=== PATIENT | female | born 1945 | race Caucasian/White ===

== ENCOUNTER 2020-05-08 09:59 | Outpatient (REF) | payer MEDICARE, OTHER, SELFPAY ==
[2020-05-08 13:52] LABS: MANUAL DIFF FLAG NO
[2020-05-08 13:59] LABS: Basophils Percent Auto 0.6 % (0-2); Eosinophils Absolute Auto 0.1 X10*3/uL (0.0-0.4); Eosinophils Percent Auto 1.8 % (0-4); Hematocrit 38.3 % (37-47); Hemoglobin 12.9 g/dl (12.0-16.0); Imm Gran Abs Auto 0.01 X10*3/uL (0.00-0.03); Imm Gran Pct Auto 0.2 % (0.0-0.4); Lymphocytes Absolute Auto 1.5 X10*3/uL (1.2-4.9); Lymphocytes Percent Auto 29.3 % (20-40); Mean Corpuscular HGB Conc 33.7 g/dl (31.0-35.0); Mean Corpuscular Hemoglobin 32.4 pg (27.0-33.0); Mean Corpuscular Volume 96.2 fL (80-98); Mean Platelet Volume 10.4 fL (9.4-12.3); Monocytes Absolute Auto 0.6 X10*3/uL (0.1-1.2); Monocytes Percent Auto 11.8 % (2-11); Neutrophils Absolute Auto 2.8 X10*3/uL (2.0-8.3); Neutrophils Percent Auto 56.3 % (45-73); Platelet Count 221 X10*3/uL (160-400); Red Blood Count 3.98 X10*6/uL (4.20-5.50)
[2020-05-08 14:41] LABS: Alanine Aminotransferase 15 U/L (0-31); Albumin Level 4.5 g/dL (3.5-5.0); Alkaline Phosphatase 44 U/L (39-117); Anion Gap 14 (12-20); Aspartate Amino Transferase 21 U/L (5-31); Bilirubin Total 0.7 mg/dL (0.0-1.0); Blood Urea Nitrogen 34 mg/dL (9-16); Calcium 9.2 mg/dL (8.4-10.2); Carbon Dioxide 25 mmol/L (22-29); Chloride 105 mmol/L (96-108); Cholesterol 203 mg/dL; Estimated Glomerular Filt Rate > 60; Glucose Fasting 78 mg/dL (60-99); HDL Cholesterol 78 mg/dL; LDL Cholesterol Calculated 111 mg/dl; Potassium 4.9 mmol/L (3.3-5.1); Sodium 139 mmol/L (135-145); Total Protein 6.7 g/dL (6.5-8.0); Triglycerides 71 mg/dL
[2020-05-08 14:50] LABS: Thyroid Stimulating Hormone 1.13 uIU/mL (0.32-4.0); Vitamin D 25-OH Total 38.9 ng/mL (>30)
[2020-05-08 15:20] LABS: T4 Thyroxine 3.6 ug/dL (4.5-12.0)
[2020-05-08 15:45] LABS: Folate 12.8 ng/mL (> or = 4.0); Vitamin B12 455 pg/mL (200-900)
== END 2020-05-08 10:00 | disposition home or self-care (01) ==
LOC: HO.10HDL 09:59
PROVIDERS: Visit Provider Internal Medicine
DX: Z00.00 Encounter for general adult medical examination without abnormal findings (principal); I10 Essential (primary) hypertension; M85.80 Other specified disorders of bone density and structure, unspecified site
CPT/HCPCS: 36415; 80053; 80061; 82306; 82607; 82746; 84436; 84443; 85025

== ENCOUNTER 2020-08-30 10:48 | Outpatient (REF) | payer MEDICARE, OTHER, SELFPAY ==
--- NOTE | ~2020-08-30 | MM_ITS ---
EXAMINATION: BONE DENSITOMETRY CLINICAL INDICATION: Other specified disorders of bone density and structure. COMPARISON: Previous BD dated 07/29/2017 and baseline BD dated 07/09/2013. TECHNIQUE: Using a [employer] DXA System (software version: 13.1) manufactured by [employer], dual-energy x-ray absorptiometry was performed of the lumbar spine and left hip. The images are of good technical quality. Summary results are attached. FINDINGS: AP SPINE L1-L4: Current: BMD 1.017 g/cm2, Z-score 1.0, T-score -1.4, osteopenia, 0.1% decrease from previous, 4.7% decrease from baseline (<5% change is not significant). Prior: BMD 1.018 g/cm2. Baseline: BMD 1.067 g/cm2. LEFT FEMUR, NECK: Current: BMD 0.767 g/cm2, Z-score 0.3, T-score -1.9, osteopenia. Prior: BMD 0.793 g/cm2. Baseline: BMD 0.806 g/cm2. LEFT FEMUR, TOTAL: Current: BMD 0.847 g/cm2, Z-score 0.8, T-score -1.3, osteopenia, 0.8% decrease from previous, 0.6% decrease from baseline (<5% change is not significant). Prior: BMD 0.854 g/cm2. Baseline: BMD 0.852 g/cm2. IDENTIFIED RISK FACTORS: Height loss, history of fracture (adult), menopause. HISTORY OF FRACTURE: Ribs. MEDICATIONS: Vitamin D. MM/XR DEXA axial skeleton IMPRESSION: 1. DIAGNOSIS: Osteopenia based on the lowest T-score value of -1.9 in the femoral neck applying World Health Organization criteria. 2. 10-YEAR FRACTURE RISK PREDICTION, FRAX: Major osteoporotic fracture (clinical spine, forearm, hip or shoulder) 15.6%. Hip fracture 3.6%. 3. Treatment Recommendations: NOF guidelines recommend consideration for treatment in postmenopausal women and men age 50 and older presenting with the following: -A hip or vertebral (clinical or morphometric) fracture. -T-score less than or equal to -2.5 at the femoral neck or spine after appropriate evaluation to exclude secondary causes. -Low bone mass at the hip or spine and a 10-year fracture probability by FRAX of greater than or equal to 3% for hip fracture or greater than or equal to 20% for major osteoporotic fracture based on the [place] adapted WHO algorithm. 4. Other Recommendations: All treatment decisions require clinical judgment and consideration of individual patient factors, including patient preferences, comorbidities, previous drug use, risk factors not captured in the FRAX model (e.g. frailty, falls, vitamin D deficiency, increased bone turnover, interval significant decline in bone density) and possible under or overestimation of fracture risk by FRAX. Additional medical evaluation for secondary cause of low bone mineral density may be appropriate. FUTURE SCAN RECOMMENDATION: People with diagnosed cases of osteoporosis or at high risk for fracture should have regular bone mineral density tests. For patients eligible for Medicare, routine testing is allowed once every 2 years. The testing frequency can be increased to one year for patients who have rapidly progressing disease, those who are receiving or discontinuing medical therapy to restore bone mass, or have additional risk factors.
== END 2020-08-30 10:49 | disposition home or self-care (01) ==
LOC: HO.MAMMO 10:48
PROVIDERS: Visit Provider Internal Medicine
DX: Z13.820 Encounter for screening for osteoporosis (principal); Z78.0 Asymptomatic menopausal state; M85.80 Other specified disorders of bone density and structure, unspecified site
CPT/HCPCS: 77080

== ENCOUNTER 2021-07-26 10:33 | Outpatient (REF) | payer MEDICARE, OTHER, SELFPAY ==
[2021-07-26 10:56] LABS: MANUAL DIFF FLAG NO
[2021-07-26 11:40] LABS: Basophils Percent Auto 0.7 % (0-2); Eosinophils Absolute Auto 0.1 X10*3/uL (0.0-0.4); Eosinophils Percent Auto 0.9 % (0-4); Hematocrit 39.6 % (37.0-47.0); Imm Gran Abs Auto 0.02 X10*3/uL (0.00-0.03); Imm Gran Pct Auto 0.4 % (0.0-0.4); Lymphocytes Absolute Auto 1.7 X10*3/uL (1.2-4.9); Lymphocytes Percent Auto 29.5 % (20-40); Mean Corpuscular HGB Conc 32.8 g/dl (31.0-35.0); Mean Corpuscular Hemoglobin 31.6 pg (27.0-33.0); Mean Corpuscular Volume 96.4 fL (80.0-98.0); Mean Platelet Volume 10.4 fL (9.4-12.3); Monocytes Absolute Auto 0.7 X10*3/uL (0.1-1.2); Monocytes Percent Auto 11.6 % (2-11); Neutrophils Absolute Auto 3.2 x10*3/uL (2.0-8.3); Neutrophils Percent Auto 56.9 % (45-73); Platelet Count 221 X10*3/uL (160-400); Red Blood Count 4.11 X10*6/uL (4.20-5.50); Red Cell Distribution Width 13.5 % (11.0-16.0); White Blood Count 5.6 X10*3/uL (4.8-10.8)
[2021-07-26 12:12] LABS: Free T4 (Free Thyroxine) 0.94 ng/dL (0.71-1.85)
[2021-07-26 12:13] LABS: Folate 11.7 ng/mL (> or = 4.0); Vitamin B12 562 pg/mL (200-900)
[2021-07-26 12:17] LABS: Alanine Aminotransferase 21 U/L (0-31); Albumin Level 4.6 g/dL (3.5-5.0); Alkaline Phosphatase 48 U/L (39-117); Anion Gap 14 (12-20); Aspartate Amino Transferase 30 U/L (5-31); Bilirubin Total 0.9 mg/dL (0.0-1.0); Blood Urea Nitrogen 35 mg/dL (9-16); Calcium 10.1 mg/dL (8.4-10.2); Carbon Dioxide 26 mmol/L (22-29); Chloride 102 mmol/L (96-108); Cholesterol 231 mg/dL; Estimated Glomerular Filt Rate > 60; Glucose Random 91 mg/dL (60-115); HDL Cholesterol 97 mg/dL; LDL Cholesterol Calculated 124 mg/dl; Potassium 4.8 mmol/L (3.3-5.1); Sodium 137 mmol/L (135-145); Triglycerides 52 mg/dL
== END 2021-07-26 10:34 | disposition home or self-care (01) ==
LOC: HO.LAB 10:33
PROVIDERS: PCP Internal Medicine; Visit Provider Internal Medicine
DX: I10 Essential (primary) hypertension (principal); E78.00 Pure hypercholesterolemia, unspecified
CPT/HCPCS: 36415; 80053; 80061; 82607; 82746; 84439; 84443; 85025

== ENCOUNTER 2022-01-09 08:00 | Day surgery (SDC) | payer MEDICARE, OTHER, SELFPAY ==
--- NOTE | 2022-01-08 12:05 | P.CONAN_ITS ---
Documented by User: Juana Dietz NP 01/08/22 12:06 HPI - Anesthesia Eval Consult details Narrative: 76yo F for Colonoscopy PMFSH Active Problems Active Problems: All Active Problems (Updated 12/21/21 @ 19:00 by Carine Shelton MD) Positive colorectal cancer screening using Cologuard test (Acute) Colon cancer screening (Acute) Constipation (Acute) Osteopenia (Acute) Breast cancer screening by mammogram (Acute) Annual physical exam (Acute) Hypertension (Acute) Past Medical History Medical History (Updated 12/21/21 @ 19:00 by Carine Shelton MD) Cervical spondylosis Hypertension Osteopenia Stress incontinence Vitamin D deficiency Family History Family History (Updated 05/23/20 @ 12:59 by ELVA Waller) Mother Lung cancer Maternal Grandfather Colon cancer Maternal Uncle Prostate cancer Surgical History Surgical History (Updated 05/23/20 @ 12:58 by ELVA Waller) H/O tubal ligation History of cataract surgery History of colonoscopy Social History Social History (Updated 08/01/21 @ 09:47 by Carine Shelton MD) Housing: House Alcohol intake: current Alcohol intake frequency: 0-2 drinks per day Patient Tobacco Use Status: Former Tobacco user Quit Date: 2018 Tobacco use type: Cigarette Cigarettes Per Day: 10 Years Smoked: 40 Smoked in Last 30 Days: No e-Cigarette/Vaping Use: Never Used Second Hand Smoke Exposure: No Use of substances other than those prescribed or required for medical reasons: No Are you DNR?: No Advance Directives: No Advance Directives Information Provided: Yes Current occupational status: retired Cognitive needs: No Hearing needs: No Vision needs: No Meds Allergies Allergy/AdvReac Type Severity Reaction Status Date / Time bee pollen [BEE STINGS] Allergy Severe ANAPHYLAXIS Verified 01/09/22 08:19 azithromycin [Zithromax] AdvReac Intermediate Abdominal Verified 01/09/22 08:19 Pain Home Medications Medication Instructions Recorded Confirmed Last Taken Type cholecalciferol (vitamin D3) 25 25 mcg PO DAILY 08/01/21 01/09/22 Unknown History mcg (1,000 unit) capsule Exam Exam Date and Time: January 08, 2022 1205 Pertinent Lab Results Pertinent Lab Results: Laboratory Tests 07/26/21 07/26/21 10:55 10:55 WBC 5.6 Hgb 13.0 Hct 39.6 Plt Count 221 Sodium 137 Potassium 4.8 Chloride 102 Carbon Dioxide 26 BUN 35 H Creatinine 0.84 Assessment and Plan Assessment Anesthesia Assessment: Chart Reviewed Documented by User: Drea Cano MD 01/09/22 10:11 [facility] Past Medical History Medical History (Updated 12/21/21 @ 19:00 by Carine Shelton MD) Cervical spondylosis Hypertension Osteopenia Stress incontinence Vitamin D deficiency Family History Family History (Updated 05/23/20 @ 12:59 by ELVA Waller) Mother Lung cancer Maternal Grandfather Colon cancer Maternal Uncle Prostate cancer Surgical History Surgical History (Updated 05/23/20 @ 12:58 by ELVA Waller) H/O tubal ligation History of cataract surgery History of colonoscopy History of Problems with Anesthesia: No Social History Social History (Updated 08/01/21 @ 09:47 by Carine Shelton MD) Housing: House Alcohol intake: current Alcohol intake frequency: 0-2 drinks per day Patient Tobacco Use Status: Former Tobacco user Quit Date: 2018 Tobacco use type: Cigarette Cigarettes Per Day: 10 Years Smoked: 40 Smoked in Last 30 Days: No e-Cigarette/Vaping Use: Never Used Second Hand Smoke Exposure: No Use of substances other than those prescribed or required for medical reasons: No Are you DNR?: No Advance Directives: No Advance Directives Information Provided: Yes Current occupational status: retired Cognitive needs: No Hearing needs: No Vision needs: No Meds Allergies Allergy/AdvReac Type Severity Reaction Status Date / Time bee pollen [BEE STINGS] Allergy Severe ANAPHYLAXIS Verified 01/09/22 08:19 azithromycin [Zithromax] AdvReac Intermediate Abdominal Verified 01/09/22 08:19 Pain Home Medications Medication Instructions Recorded Confirmed Last Taken Type cholecalciferol (vitamin D3) 25 25 mcg PO DAILY 08/01/21 01/09/22 Unknown History mcg (1,000 unit) capsule Exam Airway Mallampati Class: II TM Dist: >3cm Neck ROM: Full Loose/Missing/Broken Teeth: No Heart: RRR Lungs: CTA Assessment and Plan Assessment Anesthesia Assessment: Anesthesia Plan Discussed Final Anesthetic Review History of Problems with Anesthesia: No NPO: Yes ASA Class: I and II Final Preanesthetic Review: Meds/Allgs Chart Reviewed, Consent Obtained/Reviewed and Anes Risks/Benef Reviewed Patient Risk: Low Procedure Risk: Low Anesthetic Plan Anesthetic Plan: MAC: Disposition: Standard PACU
[2022-01-09 08:20] VITALS: BP 133/77; PULSE 79; RESP 16; TEMP 36.4; O2SAT 99; BMI 17.6
[2022-01-09] MEDS: Lactated Ringers 1,000 ML 100 ML IVCONT (09:09)
[2022-01-09 10:38] VITALS: BP 111/53; PULSE 68; RESP 20; TEMP 36.8; O2SAT 99
--- NOTE | 2022-01-09 10:41 | PM.OP ---
Brief Operative Note Date of Service: 01/09/22 Pre-op diagnosis: + Cologuard Post-op diagnosis: other (Colon polyp) Procedure: Colonoscopy to the cecum and TI with biopsy and removal of polyp Surgeon: Saleem Reina Anesthesia: MAC Was an Picture Frame Maker used for this Procedure?: No Estimated blood loss (mL): 2.0 Pathology: other (A. Cecal polyp) Condition: stable Disposition: PACU
[2022-01-09 10:53] VITALS: BP 114/73; PULSE 64; RESP 20; TEMP 36.8; O2SAT 99
--- NOTE | 2022-01-09 21:51 | OP_ITS ---
SURGEON: Saleem Reina MD INDICATIONS: The patient presents for evaluation of a positive Cologuard test. Full consent has been obtained from her for this, including risks of bleeding and perforation. PREOPERATIVE DIAGNOSIS: POSTOPERATIVE DIAGNOSIS: PROCEDURE PERFORMED: Colonoscopy to cecum and terminal ileum with biopsy and removal of polyp. ESTIMATED BLOOD LOSS: COMPLICATIONS: ANESTHESIA: Monitored anesthesia care. ASSISTANTS: SPECIMENS: PREOPERATIVE DIAGNOSES: Positive Cologuard test. POSTOPERATIVE DIAGNOSES: Positive Cologuard test, small colon polyp, sigmoid diverticulosis, and internal hemorrhoids. DESCRIPTION OF PROCEDURE: The patient was placed in the left lateral decubitus position. The digital rectal exam revealed no abnormalities. The Olympus video pediatric colonoscope was entered into the rectum and advanced easily to the cecum. Once in the cecum, I did identify a normal-appearing cecal pouch other than an approximately 3 mm polyp, which was biopsied and completely removed with cold biopsy forceps. The terminal ileum was cannulated and appeared normal. The scope was withdrawn back in the colon. The entire cecum and ileocecal valve otherwise appeared normal. The scope was slowly withdrawn assessing all mucosal surfaces carefully. Preparation was excellent. I did not visualize any other polyps, colitis, nor angiodysplasia. There was a mild amount of sigmoid diverticulosis. In the rectum, scope was retroflexed visualizing small internal hemorrhoids, but no other pathology. The rectal mucosa appeared normal. The scope was straightened and withdrawn from the patient. She tolerated the procedure well and was returned to recovery area in stable condition. IMPRESSION: 1. Small colon polyp, status post biopsy and removal. 2. Sigmoid diverticulosis. 3. Internal hemorrhoids. PLAN: The results of the biopsies will be checked. Given these minimal findings and her age, I do not think she would need any further screening colonoscopy. She will otherwise see me on a p.r.n. basis. MD YAMILE Ma/KELLEN / [phone]
== END 2022-01-09 11:18 | disposition home or self-care (01) ==
PROVIDERS: PCP Internal Medicine; Visit Provider Internal Medicine
PROC: 0DJD8ZZ Inspection of Lower Intestinal Tract, Via Natural or Artificial Opening Endoscopic (ICD-10-PCS; CPT 45378; principal; 2022-01-09 09:30)
DX: R19.5 Other fecal abnormalities (principal); D12.0 Benign neoplasm of cecum; K57.30 Diverticulosis of large intestine without perforation or abscess without bleeding; K64.8 Other hemorrhoids; I10 Essential (primary) hypertension; Z79.899 Other long term (current) drug therapy; Z88.1 Allergy status to other antibiotic agents; Z87.891 Personal history of nicotine dependence
CPT/HCPCS: 45380; 88305; J2250

== ENCOUNTER 2022-08-27 09:51 | Outpatient (REF) | payer MEDICARE, OTHER, SELFPAY ==
[2022-08-27 11:10] LABS: MANUAL DIFF FLAG NO
[2022-08-27 11:54] LABS: Basophils Percent Auto 0.8 % (0-2); Eosinophils Absolute Auto 0.2 X10*3/uL (0.0-0.4); Eosinophils Percent Auto 2.9 % (0-4); Hematocrit 39.1 % (37.0-47.0); Imm Gran Abs Auto 0.01 X10*3/uL (0.00-0.03); Imm Gran Pct Auto 0.2 % (0.0-0.4); Lymphocytes Absolute Auto 1.7 X10*3/uL (1.2-4.9); Lymphocytes Percent Auto 31.9 % (20-40); Mean Corpuscular HGB Conc 33.2 g/dl (31.0-35.0); Mean Corpuscular Hemoglobin 32.3 pg (27.0-33.0); Mean Platelet Volume 10.8 fL (9.4-12.3); Monocytes Absolute Auto 0.6 X10*3/uL (0.1-1.2); Monocytes Percent Auto 11.3 % (2-11); Neutrophils Absolute Auto 2.8 x10*3/uL (2.0-8.3); Neutrophils Percent Auto 52.9 % (45-73); Platelet Count 223 X10*3/uL (160-400); Red Blood Count 4.03 X10*6/uL (4.20-5.50); Red Cell Distribution Width 13.7 % (11.0-16.0); White Blood Count 5.2 X10*3/uL (4.8-10.8)
[2022-08-27 12:32] LABS: Alanine Aminotransferase 21 U/L (0-31); Albumin Level 4.4 g/dL (3.5-5.0); Alkaline Phosphatase 40 U/L (39-117); Anion Gap 12 (12-20); Aspartate Amino Transferase 29 U/L (5-31); Bilirubin Total 0.8 mg/dL (0.0-1.0); Blood Urea Nitrogen 32 mg/dL (9-16); Carbon Dioxide 28 mmol/L (22-29); Chloride 108 mmol/L (96-108); Cholesterol 216 mg/dL; Estimated Glomerular Filt Rate > 60; Glucose Random 70 mg/dL (60-115); HDL Cholesterol 93 mg/dL; LDL Cholesterol Calculated 111 mg/dl; Potassium 4.7 mmol/L (3.3-5.1); Sodium 143 mmol/L (135-145); Total Protein 6.7 g/dL (6.5-8.0); Triglycerides 64 mg/dL
[2022-08-27 12:55] LABS: Folate 10.5 ng/mL (> or = 4.0); Free T4 (Free Thyroxine) 0.87 ng/dL (0.71-1.85); Thyroid Stimulating Hormone 1.13 uIU/mL (0.32-4.0); Vitamin B12 498 pg/mL (200-900); Vitamin D 25-OH Total 48.2 ng/mL (>30)
== END 2022-08-27 09:52 | disposition home or self-care (01) ==
LOC: HO.WFDLDS 09:51
PROVIDERS: Visit Provider Internal Medicine
DX: I10 Essential (primary) hypertension (principal); E78.00 Pure hypercholesterolemia, unspecified; E55.9 Vitamin D deficiency, unspecified
CPT/HCPCS: 36415; 80053; 80061; 82306; 82607; 82746; 84439; 84443; 85025

== ENCOUNTER 2022-10-15 14:07 | Outpatient (REF) | payer MEDICARE, OTHER, SELFPAY ==
--- NOTE | ~2022-10-15 | MM_ITS ---
EXAMINATION: BONE DENSITOMETRY CLINICAL INDICATION: Osteopenia. COMPARISON: Previous BD dated 08/30/2020 and baseline BD dated 07/09/2013. TECHNIQUE: Using a [employer] DXA System (software version: 13.1) manufactured by [employer], dual-energy x-ray absorptiometry was performed of the lumbar spine and left hip. The images are of good technical quality. Summary results are attached. FINDINGS: LEFT FEMUR, NECK: Current: BMD 0.734 g/cm2, Z-score 0.2, T-score -2.2, osteopenia. Prior: BMD 0.767 g/cm2. Baseline: BMD 0.806 g/cm2. LEFT FEMUR, TOTAL: Current: BMD 0.851 g/cm2, Z-score 1.0, T-score -1.2, osteopenia, 0.5% increase from previous, 0.1% decrease from baseline (<5% change is not significant). Prior: BMD 0.847 g/cm2. Baseline: BMD 0.852 g/cm2. AP SPINE L1-L4: Current: BMD 1.027 g/cm2, Z-score 1.1, T-score 1.3, osteopenia, 1.0% increase from previous, 3.7% decrease from baseline (<5% change is not significant). Prior: BMD 1.017 g/cm2. Baseline: BMD 1.067 g/cm2. IDENTIFIED RISK FACTORS: Menopause, height loss, history of fracture (adult), low body weight, rheumatoid arthritis. HISTORY OF FRACTURE: Other fracture. MEDICATIONS: Vitamin D. MM/XR DEXA axial skeleton IMPRESSION: 1. DIAGNOSIS: Osteopenia based on the lowest T-score value of -2.2 in the femoral neck applying World Health Organization criteria. 2. 10-YEAR FRACTURE RISK PREDICTION, FRAX: Major osteoporotic fracture (clinical spine, forearm, hip or shoulder) 22.3%. Hip fracture 7.1%. 3. Treatment Recommendations: NOF guidelines recommend consideration for treatment in postmenopausal women and men age 50 and older presenting with the following: -A hip or vertebral (clinical or morphometric) fracture. -T-score less than or equal to -2.5 at the femoral neck or spine after appropriate evaluation to exclude secondary causes. -Low bone mass at the hip or spine and a 10-year fracture probability by FRAX of greater than or equal to 3% for hip fracture or greater than or equal to 20% for major osteoporotic fracture based on the [place] adapted WHO algorithm. 4. Other Recommendations: All treatment decisions require clinical judgment and consideration of individual patient factors, including patient preferences, comorbidities, previous drug use, risk factors not captured in the FRAX model (e.g. frailty, falls, vitamin D deficiency, increased bone turnover, interval significant decline in bone density) and possible under or overestimation of fracture risk by FRAX. Additional medical evaluation for secondary cause of low bone mineral density may be appropriate. FUTURE SCAN RECOMMENDATION: People with diagnosed cases of osteoporosis or at high risk for fracture should have regular bone mineral density tests. For patients eligible for Medicare, routine testing is allowed once every 2 years. The testing frequency can be increased to one year for patients who have rapidly progressing disease, those who are receiving or discontinuing medical therapy to restore bone mass, or have additional risk factors.
== END 2022-10-15 14:08 | disposition home or self-care (01) ==
LOC: HO.MAMMO 14:07
PROVIDERS: Visit Provider Nurse Practitioner Family
DX: Z13.820 Encounter for screening for osteoporosis (principal); Z78.0 Asymptomatic menopausal state; M85.80 Other specified disorders of bone density and structure, unspecified site
CPT/HCPCS: 77080

== ENCOUNTER 2023-09-19 09:21 | Outpatient (AMB) | payer MEDICARE, OTHER, SELFPAY ==
--- NOTE | 2023-09-19 07:41 | A.OFFVIS_ITS ---
Intake Visit Reasons: Former Smoker Allergies bee pollen [BEE STINGS] Allergy (Severe, Verified 09/26/22 07:54) ANAPHYLAXIS azithromycin [Zithromax] Adverse Reaction (Intermediate, Verified 09/26/22 07:54) Abdominal Pain HPI HPI Former Smoker: Details: Initial visit for this 77yo former smoker with a 22PYH. Patient started smoking at age 27 for 45 years at 1/2ppd. She quit 5 years ago in 06/2018. . Denies marijuana use. Denies second hand smoke exposure. Denies exposure to chemicals or substances like asbestos. . Reports family history of lung cancer. Mom at 73. Denies personal history of cancers. Denies chest CT in last year. . Denies recent travel outside the [place]. Denies recent respiratory illness or recent hospitalization for respiratory issues. Denies testing positive for COVID. Admits receiving COVID Vaccine. x3 or 4. . Denies fever, chills, new/worsening cough, hemoptysis, hoarseness or dysphagia. Denies significant chest pain, significant dyspnea or unintentional weight loss. Patient Lung Cancer Screening Questionnaire reviewed with patient by provider. . Shared Decision Making Completed. Patient meets criteria. Discussed in detail with patient, the risk vs benefit of LDCT screening. Patient consents to proceed with scan. Discussed and encouraged continued smoking cessation. [facility] Medical History (Updated 09/19/23 @ 09:25 by Caitlin Fry PA-C) Hypertension (~10/2015) Stress incontinence Personal history of nicotine dependence Vitamin D deficiency Osteopenia (~2013) Tubular adenoma of colon (~12/2021) Cervical spondylosis Surgical History (Updated 08/07/23 @ 15:54 by Caitlin Fry PA-C) History of basal cell carcinoma (BCC) excision History of tubal ligation History of colonoscopy History of cataract surgery Family History (Updated 09/26/22 @ 07:44 by Caro Meneses, LOLIS) Mother Lung cancer Maternal Grandfather Colon cancer Maternal Uncle Prostate cancer Social History (Updated 09/19/23 @ 09:26 by Ciatlin Fry PA-C) Housing: House Alcohol intake: current Alcohol intake frequency: 0-2 drinks per day Patient Tobacco Use Status: Former Tobacco user Tobacco use type: Cigarette Cigarettes Per Day: 10 Years Smoked: (onset 27, 1/2ppd x 45yrs - 23PYH - quit 2019) e-Cigarette/Vaping Use: Never Used Second Hand Smoke Exposure: No Current occupational status: retired Cognitive needs: No Hearing needs: No Vision needs: Yes Assessment & Plan Assessment & Plan (1) Personal history of nicotine dependence: Comment: (former smoker - onset 27, 1/2ppd x 45yrs - 23PYH - quit 2019) Code(s): Z87.891 - Personal history of nicotine dependence Category: Medical Plan: - SDM visit completed today in office. - Patient meets criteria for LDCT for lung cancer screening purposes and is asymptomatic. - Smoking cessation counseling offered. Patients can always call [phone]. - Will arrange for a LDCT scan of the chest for screening purposes at [facility]. - Risks, benefits, and alternatives were discussed in detail and the patient agrees to proceed. - Risks discussed include but are not limited to: radiation exposure, anxiety during testing and while awaiting results, false negatives, false positives and possibility of additional intervention such as further imaging or surgical procedures for benign disease. - Benefits are obviously detection of lung cancer at an early stage which can lead to improved outcomes. - Discussed the importance of screening program compliance with adherence to yearly LDCT scan as scheduled - or sooner interval scans for personalized screening regimen. - Discussed follow up plan. Our office will send a letter discussing results and if needed set up phone call and office visit based on CT findings. - Patient educated on results categorization and the management decisions for suspicious findings potentially found on the screening LDCT scan. Any patient with a Lung RADS score of 3 or 4 will be reviewed by a multidisciplinary team at [facility] to form a plan of action in regards to scan findings. - If further work up is warranted for a suspicious lung finding this will be followed by the Lung Cancer Screening program in conjunction with the Thoracic Surgery Department at [facility]. - A copy of the office note and LDCT will be sent to the patient's PCP - as well as documentation on any associated further plans of care. - Incidental findings on LDCT are the PCP's responsibility. These findings are indicated with an S finding on the LDCT Assessment. A note discussing the findings will be sent to the PCP who is then responsible for further management. - All questions answered.? Coding Level of Care Code Lung Cancer Screening G0296 Diagnoses Personal history of nicotine dependence Z87.891
== END 2023-09-19 09:42 | disposition home or self-care (01) ==
PROVIDERS: PCP Internal Medicine; Visit Provider Physician Assistant Medical
DX: Z87.891 Personal history of nicotine dependence (principal)
CPT/HCPCS: G0296

== ENCOUNTER 2023-09-19 09:33 | Outpatient (REF) | payer MEDICARE, OTHER, SELFPAY ==
--- NOTE | ~2023-09-19 | CT_ITS ---
EXAMINATION: CT LOW-DOSE SCREENING CHEST WITHOUT CONTRAST CLINICAL INFORMATION: Personal history of nicotine dependence. The patient has a 23 pack-year history of smoking, having quit 5 years ago. COMPARISON: Chest x-ray 07/17/2018. TECHNIQUE: Multidetector volumetric CT imaging of the chest is performed on a Siemens SOMATOM Definition scanner without contrast using low dose technique. Additional 2D coronal and sagittal reformatted images and axial 3D maximum intensity projection (MIP) images are generated on the CT workstation. This CT examination was performed using dose optimization techniques as appropriate, variously including the following: *Automated exposure control *Adjustment of mA and/or kV according to patient size (this includes techniques or standardized protocols for targeted exams where dose is matched to indication/reason for exam; i.e. extremities or head) *Use of iterative reconstruction technique TOTAL EXAM DLP: 37 mGy-cm. CTDIvol: 1.02 mGy. FINDINGS: PULMONARY NODULES: No suspicious pulmonary nodules. A number of small pulmonary nodules are present and rincon images of all have been saved with none larger than 3 mm. LUNGS: Lungs bilaterally symmetrically expanded. Mild emphysema. There is mild bronchial thickening without bronchiectasis. No effusion or pneumothorax. Central airways patent. MEDIASTINUM: No mediastinal, hilar or axillary adenopathy or free fluid collection. CORONARY ARTERY CALCIFICATION: None visualized on this study. THYROID GLAND: Unremarkable to the extent seen. CARDIOVASCULAR STRUCTURES: Aortic and heart size normal. No pericardial effusion. CHEST WALL/AXILLA: Unremarkable. UPPER ABDOMEN: Included portions of the solid organs in the upper abdomen unremarkable on noncontrast imaging. OSSEOUS STRUCTURES: No suspicious focal findings. CT/CT lung screening IMPRESSION: 1. No evidence of pulmonary malignancy. 2. Mild emphysema. 3. Incidental findings (s category): No incidental findings. 4. Number of small pulmonary nodules are present and rincon images of all have been saved with none larger than 3 mm. ASSESSMENT: Lung-RADS Category 2: Benign appearance or behavior of nodules. N/A RECOMMENDATION: Continued routine annual low-dose CT lung screening in 1 year is recommended. An order for CT CHEST LOW DOSE CANCER SCREENING ([id number]) can be placed.
== END 2023-09-19 09:34 | disposition home or self-care (01) ==
LOC: HO.CT 09:33
PROVIDERS: PCP Internal Medicine; Visit Provider Physician Assistant Medical
DX: Z12.2 Encounter for screening for malignant neoplasm of respiratory organs (principal); Z87.891 Personal history of nicotine dependence
CPT/HCPCS: 71271; G0296

== ENCOUNTER 2023-09-23 07:55 | Outpatient (REF) | payer MEDICARE, OTHER, SELFPAY ==
[2023-09-23 11:34] LABS: MANUAL DIFF FLAG NO
[2023-09-23 12:00] LABS: Basophils Percent Auto 0.7 % (0-2); Eosinophils Absolute Auto 0.1 X10*3/uL (0.0-0.4); Eosinophils Percent Auto 1.6 % (0-4); Hematocrit 38.9 % (37.0-47.0); Imm Gran Abs Auto 0.02 X10*3/uL (0.00-0.03); Imm Gran Pct Auto 0.4 % (0.0-0.4); Lymphocytes Absolute Auto 1.3 X10*3/uL (1.2-4.9); Lymphocytes Percent Auto 22.7 % (20-40); Mean Corpuscular HGB Conc 33.4 g/dl (31.0-35.0); Mean Corpuscular Hemoglobin 32.4 pg (27.0-33.0); Mean Platelet Volume 10.9 fL (9.4-12.3); Monocytes Absolute Auto 0.6 X10*3/uL (0.1-1.2); Monocytes Percent Auto 9.9 % (2-11); Neutrophils Absolute Auto 3.7 x10*3/uL (2.0-8.3); Neutrophils Percent Auto 64.7 % (45-73); Platelet Count 215 X10*3/uL (160-400); Red Blood Count 4.01 X10*6/uL (4.20-5.50); Red Cell Distribution Width 14.2 % (11.0-16.0); White Blood Count 5.6 X10*3/uL (4.8-10.8)
[2023-09-23 12:10] LABS: Alanine Aminotransferase 19 U/L (0-31); Albumin Level 4.2 g/dL (3.5-5.0); Alkaline Phosphatase 50 U/L (39-117); Anion Gap 13 (12-20); Aspartate Amino Transferase 28 U/L (5-31); Bilirubin Total 0.6 mg/dL (0.0-1.0); Blood Urea Nitrogen 41 mg/dL (9-16); Calcium 9.7 mg/dL (8.4-10.2); Carbon Dioxide 28 mmol/L (22-29); Chloride 107 mmol/L (96-108); Cholesterol 201 mg/dL (<200); Estimated Glomerular Filt Rate > 60; Glucose Random 83 mg/dL (60-115); HDL Cholesterol 90 mg/dL (>40); LDL Cholesterol Calculated 100 mg/dL (<100); Potassium 4.8 mmol/L (3.3-5.1); Sodium 143 mmol/L (135-145); Total Protein 6.6 g/dL (6.5-8.0); Triglycerides 55 mg/dL (<150)
[2023-09-23 12:15] LABS: Appearance Urine Clear; Color Urine Yellow; Glucose Urine UA Negative (Negative); Leukocyte Esterase Urine Negative (Negative); Nitrite Urine Negative (Negative); PH 5.5 (5.0-9.0); UMIC TRIGGER UACC YES; Urine Blood Negative (Negative); Urine Ketones Negative (Negative); Urine Protein 30 (1+) mg/dL (Neg-Trace)
[2023-09-23 12:29] LABS: Free T4 (Free Thyroxine) 0.88 ng/dL (0.71-1.85); Thyroid Stimulating Hormone 1.58 uIU/mL (0.32-4.0)
[2023-09-23 12:39] LABS: Folate 7.1 ng/mL (> or = 4.0); Vitamin B12 566 pg/mL (200-900)
[2023-09-23 13:03] LABS: Bacteria Urine None Seen (None Seen); RBC Urine 0-2 /HPF (0-2); Squamous Epithelial Cell Urine 0-2 /HPF (0-2); WBC Urine 0-5 /HPF (0-5)
== END 2023-09-23 07:56 | disposition home or self-care (01) ==
LOC: HO.WFDLDS 07:55
PROVIDERS: Visit Provider Internal Medicine
DX: I10 Essential (primary) hypertension (principal); E78.00 Pure hypercholesterolemia, unspecified
CPT/HCPCS: 36415; 80053; 80061; 81001; 81003; 82306; 82607; 82746; 84439; 84443; 85025

== ENCOUNTER 2023-09-29 08:53 | Outpatient (AMB) | payer MEDICARE, OTHER, SELFPAY ==
--- NOTE | 2023-09-29 09:01 | A.OFFPC_ITS ---
Vital Signs 09/29/23 09:02 Height 5 ft 3 in Weight 98 lb BMI 17.4 BP 122/72 Blood Pressure Location Lt brachial Position Sitting Pulse 73 Pulse Source Pulse Oximeter Pulse Oximetry (%) 97 Oxygen Delivery Method Room Air Intake Visit Reasons: physical exam Allergies bee pollen [BEE STINGS] Allergy (Severe, Verified 09/29/23 09:02) ANAPHYLAXIS azithromycin [Zithromax] Adverse Reaction (Intermediate, Verified 09/29/23 09:02) Abdominal Pain Medication List - Last Reconciled 09/29/23 by Carine Shelton MD cholecalciferol (vitamin D3) 25 mcg PO DAILY epinephrine (EpiPen 2-Avi) 0.3 mg (0.3 mL) IM Q15M PRN lisinopril 20 mg PO DAILY Tobacco use date assessed: 09/29/23 Fall risk assessment: No Falls in past year Last assessed Fall Risk: 09/29/23 Dental Screening Dental Screen Date: 09/29/23 Did you have a dental visit in the last 12 months?: Yes Did you have a dental problem in the last 6 months where you did not have access to dental care?: No Was dental information given to patient?: Patient has dentist HPI physical exam HPI Details 78-year-old female with a history of hyp ertension osteopenia coming in for physical exam last seen in 09/17/2022. Patient's colonoscopy last done 01/17/2022 bone density last done 09/17/2020 mammogram 2020. With a history of smoking patient had a CT scan 09/19/2023 results are pending. Patient has also seen dermatology in May [facility] Medical History (Updated 09/29/23 @ 09:30 by Carine Shelton MD) Breast cancer screening by mammogram Positive colorectal cancer screening using Cologuard test Colon cancer screening Hypertension (~10/2015) Stress incontinence Personal history of nicotine dependence Vitamin D deficiency Osteopenia (~2013) Tubular adenoma of colon (~12/2021) Cervical spondylosis Surgical History (Updated 08/07/23 @ 15:54 by Caitlin Fry PA-C) History of basal cell carcinoma (BCC) excision History of tubal ligation History of colonoscopy History of cataract surgery Family History (Updated 09/26/22 @ 07:44 by Caro Meneses CMA) Mother Lung cancer Maternal Grandfather Colon cancer Maternal Uncle Prostate cancer Social History (Updated 09/29/23 @ 09:14 by Carine Shelton MD) Housing: House Alcohol intake: current Alcohol intake frequency: 0-2 drinks per day Comment: daily 1-2 glasses of wine Patient Tobacco Use Status: Former Tobacco user Tobacco use type: Cigarette Cigarettes Per Day: 10 Years Smoked: (onset 27, 1/2ppd x 45yrs - 23PYH - quit 2019) e-Cigarette/Vaping Use: Never Used Second Hand Smoke Exposure: No Current occupational status: retired Cognitive needs: No Hearing needs: No Vision needs: Yes Questionnaire PHQ-9 Over the last 2 weeks, how often have you been bothered by any of the following problems? 1. Little interest or pleasure in doing things: not at all 2. Feeling down, depressed, or hopeless: not at all 3. Trouble falling or staying asleep, or sleeping too much: not at all 4. Feeling tired or having little energy: not at all 5. Poor appetite or overeating: not at all 6. Feeling bad about yourself - or that you are a failure or have let yourself or your family down: not at all 7. Trouble concentrating on things, such as reading the newspaper or watching television: not at all 8. Moving or speaking so slowly that other people could have noticed. Or the opposite - being so fidgety or restless that you have been moving around a lot more than usual: not at all 9. Thoughts that you would be better off or of hurting yourself in some way: not at all Total score: 0 Depression Screening Interpretation: Negative Depression Screening Done: Yes Source: Developed by Drs. Saleem Flanagan, Mary Charles, Cecil Araiza and colleagues, with an educational judy from [employer]. Thrive Questionnaire Date Thrive assessed: 09/29/23 I am a: Patient What is your living situation today?: I have a steady place to live Within the past 12 months, did the food you bought not last and you didn't have the money to get more?: Never true Within the past 12 months, did you worry whether your food would run out before you got money to buy more?: Never true Do you have trouble paying for medicines?: No Do you have trouble getting transportation to medical appointments?: No Do you have trouble paying your heating and electricity bill?: No Do you have trouble taking care of your child, family member or friend?: No Do you have trouble with day-to-day activities such as bathing, preparing meals, shopping, managing finances, etc.?: No Are you currently unemployed and looking for a job?: No Are you interested in more education?: No Currently or been in a relationship where the following occur: No concerns reported THRIVE Score: 0 AUDIT C Alcohol Use Questionnaire (AUDIT-C) 1. How often do you have a drink containing alcohol?: Monthly or less 2. How many drinks containing alcohol do you have on a typical day when you are drinking?: 1 or 2 3. How often do you have six or more drinks on one occasion?: Never Total Score: 1 JAMES-7 AMB Questionnaire JAMES-7 Date JAMES - 7 assessed: 09/29/23 Feeling nervous, anxious, or on edge: 0 = Not at all Not being able to stop or control worryin = Not at all Worrying too much about different things: 0 = Not at all Trouble relaxin = Not at all Being so restless that it is hard to sit still: 0 = Not at all Becoming easily annoyed or irritable: 0 = Not at all Feeling afraid as if something awful might happen: 0 = Not at all Total JAMES-7 score (0-4 normal; 5-9 mild; 10-14 moderate; 15-21 severe): 0 Source: Developed by Drs. Saleem Flanagan, Mary Charles, Cecil Araiza and colleagues, with an educational judy from [employer]. Review of Systems Const Denies poor appetite and Denies weakness Eyes Denies no additional complaints ENT Reports Normal hearing present, Denies dizziness, Denies nasal congestion, Denies tinnitus and Denies sore throat Card Denies chest pain, Denies syncope, Denies rapid heart rate and Denies dyspnea Resp Denies cough and Denies dyspnea GI Denies change in stool character, Reports constipation, Denies diarrhea, Denies nausea and Denies vomiting Denies urinary frequency, Denies difficulty voiding and Denies dysuria Neuro Reports Normal hearing present, Denies confusion, Denies dizziness, Denies syncope and Denies weakness Psych Denies confusion Physical exam (Primary Care) Vital Signs: Oxygen Delivery Method Room Air 09/29/23 09:02 BMI result Body Mass Index 17.4 Tobacco/Smoking Status: Tobacco use Status Tobacco use date assessed 09/26/22 09/26/22 07:47 Patient Tobacco Use Status Former Tobacco user 09/19/23 09:26 Tobacco use type Cigarette 09/19/23 09:26 e-Cigarette/Vaping Use Never Used 09/19/23 09:26 Depression Screening Interpretation: Negative Thrive Assessment: Date of Thrive Assessment Date Thrive assessed 09/26/22 09/26/22 07:47 Currently or been in a relationship where the following occur: No concerns reported Const General: No confusion Orientation/consciousness: No confusion HENMT Head: Yes normocephalic Ears: external ears normal and TM's normal bilaterally Face and sinus: Yes normal facial exam Mouth: moist mucous membranes Throat: Yes tonsils normal Eyes Conjunctivae: conjunctivae normal Pupils: Equal, round and reactive pupils present and Pupil accommodation reflex normal Direct Ophthalmoscopy: normal light reflex Neck Neck: No lymphadenopathy Thyroid: Thyroid normal Chest Chest palpation & inspection: normal inspection of the chest Resp Effort & Inspection: normal respiratory effort and no audible wheezes Auscultation: clear to auscultation bilaterally, no crackles, no wheezes and lung sounds not diminished Cardio Rate: regular rate Rhythm: regular rhythm Peripheral pulses: radial pulses present and dorsalis pedis present GI Other: guaiac negative Palpation (GI): no masses Auscultation: normal bowel sounds and normoactive bowel sounds Skin General skin exam: no rashes or lesions noted Rashes: no rashes Neuro General: No confusion Cranial nerves: Yes Equal, round and reactive pupils present and Yes Normal hearing present Cognition (Neuro): normal cognition Gait exam (Neuro): Normal gait present Motor exam (neuro): 5/5 motor strength present throughout Deep tendon reflexes (DTR's): Right brachioradialis reflex intensity grade: 2+, Left brachioradialis reflex intensity grade: 2+, Right patellar reflex intensity grade: 2+ and Left patellar reflex intensity grade: 2+ Extrem General: No edema Assessment and Plan Assessment & Plan (1) Annual physical exam: Code(s): Z00.00 - Encounter for general adult medical examination without abnormal findings Plan: Patient is advised to eat healthy, keep well hydrated, keep active and have adequate sleep. (2) Hypertension: Onset Date: ~10/2015 Code(s): I10 - Essential (primary) hypertension Qualifiers: Hypertension type: essential hypertension Qualified Code(s): I10 - Essential (primary) hypertension Plan: Continue with blood pressure medication. Decrease salt intake and exercise on lisinopril 20 mg once a day blood work just done 09/18/2023 (3) Personal history of nicotine dependence: Comment: (former smoker - onset 27, 1/2ppd x 45yrs - 23PYH - quit 2019) 08/2023for lung cancer screening Code(s): Z87.891 - Personal history of nicotine dependence Plan: CT scan done 08/2023 results are pending (4) Osteopenia: Onset Date: ~2013 Comment: (Bone Dexa Femoral T-score: -1.7 on 07/09/13; -2.2 on 10/15/22) Code(s): M85.80 - Other specified disorders of bone density and structure, unspecified site Qualifiers: Osteopenia location: multiple sites Qualified Code(s): M85.89 - Other specified disorders of bone density and structure, multiple sites Plan: 10/17/2022 bone density up-to-date (5) Breast cancer screening by mammogram: Code(s): Z12.31 - Encounter for screening mammogram for malignant neoplasm of breast (6) Knee pain, right: Code(s): M25.561 - Pain in right knee Plan: xr requested. discussed about R anserine bursitis Orders: Orders MM tomosynthesis screening BI Today Z12.31 - Encounter for screening mammogram for malignant neoplasm of breast XR knee RT 2V Today M25.561 - Pain in right knee Medications: Refilled epinephrine (EpiPen 2-Avi) for 3 doses 0.3 mg (0.3 mL) IM Q15M PRN 2 ea 0RF anaphylaxis lisinopril 20 mg PO DAILY 90 tabs 3RF I10 - Essential (primary) hypertension Coding Level of Care Code Est Pt Prev Care >65y(10119) Diagnoses Annual physical exam Z00.00 Essential hypertension I10 Hypertension type: essential hypertension Personal history of nicotine dependence Z87.891 Osteopenia of multiple sites M85.89 Osteopenia location: multiple sites Breast cancer screening by mammogram Z12.31 Knee pain, right M25.561
[2023-09-29 09:02] VITALS: BP 122/72; PULSE 73; O2SAT 97; BMI 17.4
== END 2023-09-29 09:39 | disposition home or self-care (01) ==
PROVIDERS: PCP Internal Medicine; Visit Provider Internal Medicine
DX: Z00.00 Encounter for general adult medical examination without abnormal findings (principal); I10 Essential (primary) hypertension; Z87.891 Personal history of nicotine dependence; M85.89 Other specified disorders of bone density and structure, multiple sites; Z12.31 Encounter for screening mammogram for malignant neoplasm of breast; M25.561 Pain in right knee
CPT/HCPCS: 99397

== ENCOUNTER 2023-09-29 09:50 | Outpatient (REF) | payer MEDICARE, OTHER, SELFPAY ==
--- NOTE | ~2023-09-29 | XR_ITS ---
EXAMINATION: XR KNEE, RIGHT CLINICAL INFORMATION: Pain. COMPARISON: 01/25/2017. TECHNIQUE: Two views of the right knee. FINDINGS: Diffuse demineralization. Trace joint effusion. Tiny tricompartmental osteophytes. Narrowing of the patellofemoral compartment. XR/XR knee RT 2V IMPRESSION: Mild degenerative changes.
== END 2023-09-29 09:51 | disposition home or self-care (01) ==
LOC: HO.XRAY 09:50
PROVIDERS: PCP Internal Medicine; Visit Provider Internal Medicine
DX: M25.561 Pain in right knee (principal)
CPT/HCPCS: 73560

== ENCOUNTER 2023-11-19 07:59 | Outpatient (REF) | payer MEDICARE, OTHER, SELFPAY ==
--- NOTE | ~2023-11-19 | MM_ITS ---
EXAMINATION: MM SCREENING DIGITAL BREAST TOMOSYNTHESIS, BILATERAL CLINICAL INFORMATION: Screening. Asymptomatic. Previous benign right stereotactic biopsy in 2001. No significant family history of breast CA. COMPARISON: Mammography: 11/15/2022, 11/12/2021, 11/07/2020 ([facility]). TECHNIQUE: Digital breast tomosynthesis is performed in both the craniocaudal and mediolateral oblique views along with computer-aided detection (CAD). Synthesized 2D images are generated from the tomosynthesis. In addition, added full-field 3-D laterally exaggerated bilateral CC views were obtained, as well as a full field 3-D right MLO view. FINDINGS: There are scattered areas of fibroglandular density (ACR BI-RADS breast composition Category b). There are benign vascular calcifications present. There are no suspicious masses, suspicious grouped calcifications, or areas of architectural distortion in either breast. The parenchymal pattern is stable from prior exams. There is no skin or axillary abnormality. MM/MM tomosynthesis screening BI IMPRESSION: No mammographic evidence of malignancy. ASSESSMENT: BI-RADS BI-RADS 2 - Benign Findings RECOMMENDATION: Routine annual mammography screening. 1 year F/U This examination should not preclude the clinical evaluation of a suspicious palpable abnormality. This patient's information was entered into a reminder system with a target due date for their next mammogram. Electronically signed by: Isidoro Galeano MD 12/04/2023 08:43 AM EDT
== END 2023-11-19 08:00 | disposition home or self-care (01) ==
LOC: HO.MAMMO 07:59
PROVIDERS: PCP Internal Medicine; Visit Provider Internal Medicine
DX: Z12.31 Encounter for screening mammogram for malignant neoplasm of breast (principal)
CPT/HCPCS: 77063; 77067

== ENCOUNTER → 2023-11-19 08:15 | Outpatient (BNV) | payer MEDICARE, OTHER, SELFPAY | PROVIDERS: PCP Internal Medicine; Visit Provider Radiology Diagnostic Radiology | DX: Z12.31 Encounter for screening mammogram for malignant neoplasm of breast (principal) | CPT/HCPCS: 77063; 77067 ==

== ENCOUNTER 2023-11-25 13:46 | Outpatient (AMB) | payer MEDICARE, OTHER, SELFPAY ==
--- NOTE | 2023-11-25 13:52 | A.OFFVIS_ITS ---
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 She denies any locking or giving way. She continues to walk for exercise. She does not take any medicines for discomfort. She has tried wearing a brace which gave her fairly good relief. Allergies bee pollen [BEE STINGS] Allergy (Severe, Verified 11/25/23 13:56) ANAPHYLAXIS azithromycin [Zithromax] Adverse Reaction (Intermediate, Verified 11/25/23 13:56) Abdominal Pain Medication List - Last Reconciled 11/25/23 by Navid Mcallister MD cholecalciferol (vitamin D3) 25 mcg PO DAILY epinephrine (EpiPen 2-Avi) 0.3 mg (0.3 mL) IM Q15M PRN lisinopril 20 mg PO DAILY PFSH Medical History Breast cancer screening by mammogram Positive colorectal cancer screening using Cologuard test Colon cancer screening Hypertension (~10/2015) Stress incontinence Personal history of nicotine dependence Vitamin D deficiency Osteopenia (~2013) Tubular adenoma of colon (~12/2021) Cervical spondylosis Surgical History History of basal cell carcinoma (BCC) excision History of tubal ligation History of colonoscopy History of cataract surgery Family History Mother Lung cancer Maternal Grandfather Colon cancer Maternal Uncle Prostate cancer Social History Housing: House Alcohol intake: current Alcohol intake frequency: 0-2 drinks per day Comment: daily 1-2 glasses of wine Patient Tobacco Use Status: Former Tobacco user Tobacco use type: Cigarette Cigarettes Per Day: 10 Years Smoked: (onset 27, 1/2ppd x 45yrs - 23PYH - quit 2018) e-Cigarette/Vaping Use: Never Used Second Hand Smoke Exposure: No Current occupational status: retired Cognitive needs: No Hearing needs: No Vision needs: Yes Physical Exam Const Other: Well-nourished well-developed very friendly female awake alert and oriented x3 in no acute distress Extrem Other: Bilateral lower extremity examination shows good capillary refill, no skin lesions noted, normal sensation light touch Right knee examination shows a minimal effusion, minimal crepitus with range of motion, minimal discomfort with range of motion, no instability Results Reviewed Results Reviewed: X-rays of the patient's right knee show mild diffuse joint space narrowing, no acute bony abnormalities Assessment & Plan Assessment & Plan (1) Arthritis of right knee: Code(s): M17.11 - Unilateral primary osteoarthritis, right knee Category: Medical Plan Ms. Hebert presents with intermittent discomfort in her right knee due to early degenerative joint disease. I had a lengthy discussion with the patient regarding the treatment options. At this point the patient's symptoms are tolerable to her. We will hold off on an injection or physical therapy. She will follow up with me on an as-needed basis should her symptoms worsen in any way. Feel free to call me at any time should questions regarding her orthopedic management arise. Thank you very much for asking me to see this very friendly patient. I spent 20 minutes in reviewing the patient's records and imaging studies, seeing the patient and documenting in the medical record. Coding Level of Care Code New Pt Level 3 (86310) Diagnoses Arthritis of right knee M17.11
== END 2023-11-25 14:15 | disposition home or self-care (01) ==
PROVIDERS: PCP Internal Medicine; Visit Provider Orthopaedic Surgery
DX: M17.11 Unilateral primary osteoarthritis, right knee (principal)
CPT/HCPCS: 99202

== ENCOUNTER → 2023-11-25 13:46 | Outpatient (BNVA) | payer MEDICARE, OTHER, SELFPAY | PROVIDERS: PCP Internal Medicine; Visit Provider Orthopaedic Surgery | DX: M17.11 Unilateral primary osteoarthritis, right knee (principal) | CPT/HCPCS: 99202 ==

== ENCOUNTER 2024-02-10 14:55 | Outpatient (AMB) | payer MEDICARE, OTHER, SELFPAY ==
[2024-02-10 14:59] VITALS: BP 144/78; PULSE 70; O2SAT 97; BMI 17.0
--- NOTE | 2024-02-10 14:59 | MHC.PC.OV ---
Vital Signs 02/10/24 14:59 Height 5 ft 3 in Weight 96 lb BMI 17.0 BP 144/78 H Blood Pressure Location Lt brachial Position Sitting Pulse 70 Pulse Source Pulse Oximeter Pulse Oximetry (%) 97 Oxygen Delivery Method Room Air Intake Visit Reasons: Anxiety Intake Note: Patient is here to follow up [employer] Required: No Allergies bee pollen [BEE STINGS] Allergy (Severe, Verified 02/10/24 15:00) ANAPHYLAXIS azithromycin [Zithromax] Adverse Reaction (Intermediate, Verified 02/10/24 15:00) Abdominal Pain Tobacco use date assessed: 09/29/23 Fall risk assessment: No Falls in past year Last assessed Fall Risk: 02/10/24 Dental Screening Dental Screen Date: 09/29/23 HPI Anxiety HPI Details 78-year-old female with a history of hypertension osteopenia history of nicotine dependence CT scan done in 09/18/2023 right knee pain last seen for physical exam in 10/18/2023. Patient had an x-ray requested also. Review of the notes was seen by orthopedics in November 24 diagnosis of arthritis of the right knee held off injection as the symptoms are tolerable. As for the CT scan done in 09/18/2023 showing no evidence of pulmonary malignancy has mild emphysema noted small pulmonary nodules none larger than 3 mm. had CVA and [patient is very anxious patient was recommended to have a benzodiazepine to a quicker but would not like to do this as the medication can make her sleepy. Patient also does alcohol although medication is not recommended with alcohol. Her friends told her that she can take alcohol with Lexapro but discussed with the patient that I can do the prescription for Lexapro but still alcohol is not recommended. [facility] Medical History (Updated 02/10/24 @ 15:08 by Carine Shelton MD) Knee pain, right Breast cancer screening by mammogram Positive colorectal cancer screening using Cologuard test Colon cancer screening Hypertension (~10/2015) Stress incontinence Personal history of nicotine dependence Vitamin D deficiency Osteopenia (~2013) Tubular adenoma of colon (~12/2021) Cervical spondylosis Surgical History History of basal cell carcinoma (BCC) excision History of tubal ligation History of colonoscopy History of cataract surgery Family History Mother Lung cancer Maternal Grandfather Colon cancer Maternal Uncle Prostate cancer Social History Housing: House Alcohol intake: current Alcohol intake frequency: 0-2 drinks per day Comment: daily 1-2 glasses of wine Patient Tobacco Use Status: Former Tobacco user Tobacco use type: Cigarette Cigarettes Per Day: 10 Years Smoked: (onset 27, 1/2ppd x 45yrs - 23PYH - quit 2019) e-Cigarette/Vaping Use: Never Used Second Hand Smoke Exposure: No Current occupational status: retired Cognitive needs: No Hearing needs: No Vision needs: Yes Questionnaire PHQ-9 Over the last 2 weeks, how often have you been bothered by any of the following problems? 1. Little interest or pleasure in doing things: nearly every day 2. Feeling down, depressed, or hopeless: nearly every day 3. Trouble falling or staying asleep, or sleeping too much: more than half the days (trouble sleeping ) 4. Feeling tired or having little energy: nearly every day 5. Poor appetite or overeating: nearly every day 6. Feeling bad about yourself - or that you are a failure or have let yourself or your family down: not at all 7. Trouble concentrating on things, such as reading the newspaper or watching television: nearly every day 8. Moving or speaking so slowly that other people could have noticed. Or the opposite - being so fidgety or restless that you have been moving around a lot more than usual: nearly every day 9. Thoughts that you would be better off or of hurting yourself in some way: not at all Total score: 20 Depression Screening Interpretation: Positive Depression Screening Done: Yes 84014 - PHQ-9 Billing: Yes Source: Developed by Drs. Saleem Flanagan, Mary Charles, Cecil Araiza and colleagues, with an educational judy from [employer]. Thrive Questionnaire Date Thrive assessed: 09/29/23 JAMES-7 AMB Questionnaire JAMES-7 Date JAMES - 7 assessed: 09/29/23 Feeling nervous, anxious, or on edge: 3 = Nearly every day Not being able to stop or control worryin = Nearly every day Worrying too much about different things: 3 = Nearly every day Trouble relaxin = Nearly every day Being so restless that it is hard to sit still: 3 = Nearly every day Becoming easily annoyed or irritable: 3 = Nearly every day Feeling afraid as if something awful might happen: 3 = Nearly every day Total JAMES-7 score (0-4 normal; 5-9 mild; 10-14 moderate; 15-21 severe): 21 Source: Developed by Drs. Saleem Flanagan, Mary Charles, Cecil Araiza and colleagues, with an educational judy from [employer]. JAMES-7 Assessment Billing JAMES-7 Assessment Tool: JAMES-7 Assessment 90989 Physical exam (Primary Care) Vital Signs: Oxygen Delivery Method Room Air 02/10/24 14:59 BMI result Body Mass Index 17.0 Tobacco/Smoking Status: Tobacco use Status Tobacco use date assessed 09/29/23 02/10/24 15:00 Patient Tobacco Use Status Former Tobacco user 02/10/24 15:00 Tobacco use type Cigarette 02/10/24 15:00 e-Cigarette/Vaping Use Never Used 02/10/24 15:00 PHQ-9: PHQ-9 Score PHQ-9: Total score 0 02/10/24 15:00 Depression Screening Interpretation: Positive Thrive Assessment: Date of Thrive Assessment Date Thrive assessed 09/29/23 02/10/24 15:00 Const General: alert; No acute distress Eyes Conjunctivae: conjunctivae normal Resp Auscultation: clear to auscultation bilaterally Cardio Rate: regular rate Rhythm: regular rhythm GI Inspection: Yes normal to inspection Extrem General: Yes normal to inspection and No edema Coding Level of Care Code Est Pt Level 4 (87304) Diagnoses Arthritis of right knee M17.11 Essential hypertension I10 Hypertension type: essential hypertension Personal history of nicotine dependence Z87.891 Generalized anxiety disorder F41.1 Mild emphysema J43.9 Additional Codes JAMES-7 Assessment Billing - JAMES-7 Assessment Tool: JAMES-7 Assessment [id number] ([id number]) PHQ-9 - 85488 - PHQ-9 Billing: Yes ([id number]) Assessment & Plan Assessment & Plan (1) Arthritis of right knee: Comment: X-ray showing mild osteoarthritis August 2023 Code(s): M17.11 - Unilateral primary osteoarthritis, right knee Category: Medical Plan: Patient had mild osteoarthritis and continuing to monitor. Patient did see Orthopedics (2) Hypertension: Onset Date: ~10/2015 Code(s): I10 - Essential (primary) hypertension Category: Medical Qualifiers: Hypertension type: essential hypertension Qualified Code(s): I10 - Essential (primary) hypertension Plan: Continue with blood pressure medication. Decrease salt intake and exercise on lisinopril 20 mg once a day (3) Personal history of nicotine dependence: Comment: (former smoker - onset 27, 1/2ppd x 45yrs - 23PYH - quit 2018) 08/2023for lung cancer screening Code(s): Z87.891 - Personal history of nicotine dependence Category: Medical Plan: CT scan done 09/18/2023. Pulmonary nodules none bigger than 3 mm (4) Generalized anxiety disorder: Code(s): F41.1 - Generalized anxiety disorder Category: Medical Plan: Patient is prescribed Lexapro to start with and discussed that this takes time to work but declined any benzodiazepine as this can make her sleepy. Still advised patient to refrain from alcohol with this medications. (5) Mild emphysema: Comment: CT scan August 2023 Code(s): J43.9 - Emphysema, unspecified Category: Medical Plan: CT scan revealed mild emphysema. Discussed options of inhalers to use. Medications: New escitalopram oxalate (Lexapro) 5 mg PO DAILY 30 tabs 2RF F41.1 - Generalized anxiety disorder
== END 2024-02-10 15:28 | disposition home or self-care (01) ==
PROVIDERS: PCP Internal Medicine; Visit Provider Internal Medicine
DX: M17.11 Unilateral primary osteoarthritis, right knee (principal); I10 Essential (primary) hypertension; Z87.891 Personal history of nicotine dependence; J43.9 Emphysema, unspecified; F41.1 Generalized anxiety disorder

== ENCOUNTER → 2024-02-10 14:55 | Outpatient (BNVA) | payer MEDICARE, OTHER, SELFPAY | PROVIDERS: PCP Internal Medicine; Visit Provider Internal Medicine | DX: M17.11 Unilateral primary osteoarthritis, right knee (principal); I10 Essential (primary) hypertension; F41.1 Generalized anxiety disorder; J43.9 Emphysema, unspecified; Z87.891 Personal history of nicotine dependence | CPT/HCPCS: 96127; 99212 ==

== ENCOUNTER 2024-05-11 11:37 | Outpatient (AMB) | payer MEDICARE, OTHER, SELFPAY ==
--- NOTE | 2024-05-11 11:37 | MHC.PC.OV ---
Intake Visit Reasons: cough and sore throat Mortgage Coordinator Required: No Information Interpreted: non-clinical & clinical Manager Business Development Hospice: Not Required per policy Accompanied by: Self / Same As Patient Allergies bee pollen [BEE STINGS] Allergy (Severe, Verified 05/11/24 11:38) ANAPHYLAXIS azithromycin [Zithromax] Adverse Reaction (Intermediate, Verified 05/11/24 11:38) Abdominal Pain Tobacco use date assessed: 05/11/24 Fall risk assessment: No Falls in past year Last assessed Fall Risk: 05/11/24 Dental Screening Dental Screen Date: 05/11/24 Did you have a dental visit in the last 12 months?: Yes Did you have a dental problem in the last 6 months where you did not have access to dental care?: No Was dental information given to patient?: Patient has dentist HPI cough and sore throat HPI Details 4 days sick urgent care- state viral infection, cough, sore throat, had fevers, thick mucus, , has chst congestion. test done in [facility] covid, rsv and flu negative The patient is a 78-year-old female presenting with an acute exacerbation of cough and sore throat. The cough has been ongoing since Friday and has progressively worsened despite initial interventions. The patient initially sought care at an urgent center on Friday, where she was diagnosed with a viral respiratory infection and was prescribed Tessalon and Robitussin DM. She reports these medications have not provided relief. The cough is characterized as severe and productive with thick mucus expectoration, which she describes as glue-like. She experienced a fever of 99.8?F on Friday and occasional feelings of choking at night due to the mucus, impeding her sleep. The patient denies having a current fever but reports a headache and episodes of shortness of breath. Previous testing for COVID-19, RSV, and influenza returned negative results. The patient has a history of pneumonia five years ago and expresses concern for her ability to attend to her paralyzed 's needs in a nursing facility. - Respiratory: Reports shortness of breath, productive cough, thick mucus, and sore throat. - General: Denies current fever but reported a maximum temperature of 99.8?F on Friday. - Neurological: Reports headache. [facility] Medical History (Updated 05/11/24 @ 12:02 by Carine Shelton MD) Knee pain, right Breast cancer screening by mammogram Positive colorectal cancer screening using Cologuard test Colon cancer screening Hypertension (~10/2015) Stress incontinence Personal history of nicotine dependence Vitamin D deficiency Osteopenia (~2013) Tubular adenoma of colon (~12/2021) Cervical spondylosis Surgical History History of basal cell carcinoma (BCC) excision History of tubal ligation History of colonoscopy History of cataract surgery Family History Mother Lung cancer Maternal Grandfather Colon cancer Maternal Uncle Prostate cancer Social History Housing: House Alcohol intake: current Alcohol intake frequency: 0-2 drinks per day Comment: daily 1-2 glasses of wine Patient Tobacco Use Status: Former Tobacco user Tobacco use type: Cigarette Cigarettes Per Day: 10 Years Smoked: (onset 27, 1/2ppd x 45yrs - 23PYH - quit 2019) e-Cigarette/Vaping Use: Never Used Second Hand Smoke Exposure: No Current occupational status: retired Cognitive needs: No Hearing needs: No Vision needs: Yes Questionnaire PHQ-9 Over the last 2 weeks, how often have you been bothered by any of the following problems? 1. Little interest or pleasure in doing things: nearly every day 2. Feeling down, depressed, or hopeless: nearly every day 3. Trouble falling or staying asleep, or sleeping too much: more than half the days (trouble sleeping ) 4. Feeling tired or having little energy: nearly every day 5. Poor appetite or overeating: nearly every day 6. Feeling bad about yourself - or that you are a failure or have let yourself or your family down: not at all 7. Trouble concentrating on things, such as reading the newspaper or watching television: nearly every day 8. Moving or speaking so slowly that other people could have noticed. Or the opposite - being so fidgety or restless that you have been moving around a lot more than usual: nearly every day 9. Thoughts that you would be better off or of hurting yourself in some way: not at all Total score: 20 79330 - PHQ-9 Billing: Yes Source: Developed by Drs. Saleem Flanagan, Cecil Iverson and colleagues, with an educational judy from [employer]. Thrive Questionnaire Date Thrive assessed: 05/11/24 I am a: Patient What is your living situation today?: I have a steady place to live Within the past 12 months, did the food you bought not last and you didn't have the money to get more?: Never true Within the past 12 months, did you worry whether your food would run out before you got money to buy more?: Never true Do you have trouble paying for medicines?: No Do you have trouble getting transportation to medical appointments?: No Do you have trouble paying your heating and electricity bill?: No Do you have trouble taking care of your child, family member or friend?: No Do you have trouble with day-to-day activities such as bathing, preparing meals, shopping, managing finances, etc.?: No Are you currently unemployed and looking for a job?: No Are you interested in more education?: No Please select the resources that you would like help with: None Currently or been in a relationship where the following occur: No concerns reported THRIVE Score: 0 AUDIT C Alcohol Use Questionnaire (AUDIT-C) 1. How often do you have a drink containing alcohol?: Monthly or less 2. How many drinks containing alcohol do you have on a typical day when you are drinking?: 1 or 2 3. How often do you have six or more drinks on one occasion?: Never Total Score: 1 JAMES-7 AMB Questionnaire JAMES-7 Date JAMES - 7 assessed: 05/11/24 Feeling nervous, anxious, or on edge: 3 = Nearly every day Not being able to stop or control worryin = Nearly every day Worrying too much about different things: 3 = Nearly every day Trouble relaxin = Nearly every day Being so restless that it is hard to sit still: 3 = Nearly every day Becoming easily annoyed or irritable: 3 = Nearly every day Feeling afraid as if something awful might happen: 3 = Nearly every day Total JAMES-7 score (0-4 normal; 5-9 mild; 10-14 moderate; 15-21 severe): 21 Source: Developed by Mary Smyth Kurt Kroenke and colleagues, with an educational judy from [employer]. JAMES-7 Assessment Billing JAMES-7 Assessment Tool: JAMES-7 Assessment 04467 Physical exam (Primary Care) Tobacco/Smoking Status: Tobacco use Status Tobacco use date assessed 05/11/24 05/11/24 11:39 Patient Tobacco Use Status Former Tobacco user 05/11/24 11:39 Tobacco use type Cigarette 05/11/24 11:39 e-Cigarette/Vaping Use Never Used 05/11/24 11:39 PHQ-9: PHQ-9 Score PHQ-9: Total score 20 05/11/24 11:39 Thrive Assessment: Date of Thrive Assessment Date Thrive assessed 05/11/24 05/11/24 11:39 Currently or been in a relationship where the following occur: No concerns reported Telehealth Telehealth Telehealth Platform: Telephone Location of provider rendering services: practice address Location of patient: address on file Patient Identification confirmed using: Name, : Yes Telehealth method: video Patient verbally consented to treatment: Yes Patient verbally consented to billing insurance company: Yes Patient informed of any privacy concerns related to visit: Yes Coding Level of Care Code Tele Est Pt Level 3 (52512) Diagnoses Cough R05.9 Additional Codes JAMES-7 Assessment Billing - JAMES-7 Assessment Tool: JAMES-7 Assessment 10645 ([id number]) PHQ-9 - 60908 - PHQ-9 Billing: Yes ([id number]) Assessment & Plan Assessment & Plan (1) Cough: Code(s): R05.9 - Cough, unspecified Category: Medical Plan - Prescribe antibiotic therapy for potential bacterial involvement in the respiratory infection. - Prescribe a cough suppressant containing codeine to help manage severe cough symptoms, especially at night. - Encourage use of Mucinex during daytime to aid in mucus expectoration and ensure adequate hydration. - Consider non-prescription measures such as increased fluid intake and warm teas to help alleviate symptoms. During the consultation, I discussed the situation with the patient regarding her negative viral panel tests, which included COVID-19, RSV, and flu, thus leaning towards a bacterial infection or non-viral etiology for her symptoms. Given her history of pneumonia and chronic lung disease (mild emphysema), I emphasized the importance of managing her symptoms aggressively to prevent further complications. The risks and benefits of prescribed medications, including potential difficulties obtaining hydrocodone due to insurance restrictions, were explained. The need for adequate fluid intake to aid in mucus clearance was reinforced. I also acknowledged her concerns about her 's care, reassuring her that efforts would be made to resolve her symptoms quickly - Begin antibiotic medication as prescribed, taking it twice daily for seven days. - Use prescribed cough medication with codeine, especially at nighttime to aid in sleep. - Take Mucinex during the day to help with mucus removal; drink plenty of fluids. - Monitor symptoms and if no improvement is seen, contact the clinic. - Ensure hydration by drinking water and warm teas regularly. - Refer to [facility] [address] [facility] in [place] for prescription pick-up. Medications: New hydrocodone-chlorpheniramine 10-8 mg/5 mL Partial Fill upon patient request. 5 mL PO Q12H PRN 70 mL 0RF cough R05.9 - Cough, unspecified doxycycline hyclate 100 mg PO BID 14 caps 0RF R05.9 - Cough, unspecified
--- OUTSIDE RECORDS SUMMARY | 2024-05-11 13:13 | XMS_ITS | Clinical Summary ---
Author Organization [facility] Address [address] [place] [address] Care Team Providers Care Dental Appliance Repairer Name Role Phone Unavailable Primary Care Provider Unavailabl e Social History Tobacco Use Types Packs/Day Years Used Date Smoking Tobacco: Never Assessed Sex and Gender Information Value Date Recorded Sex Assigned at Not on file Gender Identity Not on file Sexual Orientation Not on file Plan of Treatment Health Maintenance Due Date Last Done Comments Hepatitis C Screening 1945 COVID-19 Vaccine (#1) 03/25/1946 Depression Screening 1959 Preventative Health Evaluation 09/23/1965 DTap / Tdap / Td (1 - Tdap) 09/23/1966 Shingrix-Zoster Vaccine (1 of 2) 09/23/1997 Fall Risk Assessment 09/23/2012 Osteoporosis Screening (DEXA Scan) 09/23/2012 Pneumococcal Vaccine (1 of 1 - PCV) 09/23/2012 RSV Adult > 60+ Yrs or Pregn ant (1 - 1-dose 75+ series) 09/23/2022 Influenza Vaccine (#1) 2023 Hepatitis B Vaccines Aged Out No long er eligible based on patient's age to complete this topic RSV Ped < 20 months Aged Out No longe r eligible based on patient's age to complete this topic
--- OUTSIDE RECORDS SUMMARY | 2024-05-11 13:13 | XMS_ITS | Patient Health Record ---
Author Organization [facility] Address [address] [place] [address] Care Team Providers Care Vp Ad Sales West Name Role Phone Carine Shelton MD Primary Care Provider Saleem Johansen [phone] ALLERGIES Allergen (clinical drug ingredient) Drug/Non Drug Allergy documented on EMR Reaction Allergy Type Onset Date Status bee syings (uncoded) Unknown Allergy Active REASON FOR REFERRAL No Information MEDICATIONS Medication SIG (Take, Route, Fr equency, Duration) Notes Start Date End Date Status Vitamin D Active Lisinopril 20 MG Oral for 90 A ctive IMMUNIZATIONS Vaccine Route Administration Date Status Comme nts Influenza Unknown 11/30/2019 Administered Influenza Unknown 12/17/2021 Administered SOCIAL HISTORY Tobacco Use: Social History Observation Description Date Details (start date - stop date) Former Smoker NA - NA Sex Assigned At : Social History Observation Description Sex Assigned At Unknown Tobacco Use/Smoking Question Answer Notes Patient is a former smoker How long has it been since you last smoked? 1-5 years Alcohol Screen Question Answer Notes Did you have a drink contain ing alcohol in the past year? Yes How often did you have a dri nk containing alcohol in the past year? 4 or more times a week (4 points) How many drinks did you have on a typical day when you were drinking in the past year? 1 or 2 drinks (0 point) How often did you have 6 or more drinks on one occasion in the past year? Never (0 point) Points 4 Interpretation Positive PROBLEMS Problem Type ICD Code Onset Dates Problem Status W/U Status Risk SNOMED Code Notes Problem Encounter for screening for malignant neoplasm of colon (Z12.11) Active confirmed 071753298 Problem Preprocedural examination (Z01.818) Active confirmed [id number] Problem Positive colorectal cancer screening using Cologuard test (R19.5) Active confirmed Abnormal feces (876670589) Problem Colon cancer screening (Z12.11) Active confirmed Colon cancer screening (206307069) Problem Diverticulosis of colon (K57.30) Active confirmed Diverticulosi s of colon (338220121) PLAN OF TREATMENT Future Test Test Name Order Date COLONOSCOPY 08/15/2020 COLONOSCOPY 01/01/2022 Insurance Providers Payer Name Payer Address Payer Phone Subscriber Number Group Number Insured Name Patient Relationship to Insured Coverage Start Date Coverage End Date [facility] [address] [address] [place] [address] [id number] DIANA MCNAIR Self - patient is the insured [employer] [address] [place] [address] [id number] DIANA MCNAIR Self - patient is the insured MEDICAL (GENERAL) HISTORY Medical History History ICD Code Hypertension Denies [place],DM,CVA,Lung disease,renal dise ase Negative colonoscopy in 09/17 10, and negative limited exam in 2005 at [facility] Negative Cologuard in 2019 + Cologuard in 11/2021 Surgical History Surgery Date(Month/Year) Tubal ligation
== END 2024-05-11 12:14 | disposition home or self-care (01) ==
LOC: HO.HMCH 11:37
PROVIDERS: PCP Internal Medicine; Visit Provider Internal Medicine
DX: R05.9 Cough, unspecified (principal)

== ENCOUNTER → 2024-05-11 11:37 | Outpatient (BNVA) | payer MEDICARE, OTHER, SELFPAY | PROVIDERS: PCP Internal Medicine; Visit Provider Internal Medicine | DX: R05.9 Cough, unspecified (principal) | CPT/HCPCS: 96127 ==

== ENCOUNTER 2024-09-30 09:04 | Outpatient (REF) | payer MEDICARE, OTHER, SELFPAY ==
--- OUTSIDE RECORDS SUMMARY | 2024-09-30 09:20 | XMS_ITS | Patient Health Record ---
Author Organization [facility] Address [address] [place] [address] Care Team Providers Care Yeast Fermentation Attendant Name Role Phone Carine Shelton MD Primary Care Provider Saleem Johansen [phone] Allergies Allergen (clinical drug ingredient) Drug/Non Drug Allergy documented on EMR Reaction Allergy Type Onset Date Status bee syings (uncoded) Unknown Allergy Active Reason For Referral No Information Medications Medication SIG (Take, Route, Fr equency, Duration) Notes Start Date End Date Status Vitamin D Active Lisinopril 20 MG Oral for 90 A ctive Immunizations Vaccine Route Administration Date Status Comme nts Influenza Unknown 11/30/2019 Administered Influenza Unknown 12/17/2021 Administered Social History Tobacco Use: Social History Observation Description Date Details (start date - stop date) Former Smoker NA - NA Tobacco Use/Smoking Question Answer Notes Patient is [...] Never (0 point) Points 4 Interpretation Positive Section Notes: Nonsmoker since 2019; 1-2 gl asses of wine QD Nonsmoker since 2019; 1-2 gl asses of wine QD Problems Problem Type SNOMED Code ICD Code Onset Dates Problem Status W/U Status Risk Notes Problem Colon cancer screening (675994478) Colon cancer screening (Z12.11) Active confirmed Problem 962715135 Encounter for screening for malignant neoplasm of colon (Z12.11) Active confirmed Problem 670613531430622 Preprocedural examination (Z01.818) Active confirmed Problem Diverticulosis of colon (493744783) Diverticulosis of colon (K57.30) Active confirmed Problem Abnormal feces (456070888) Positive colorectal cancer screening using Cologuard test (R19.5) Active confirmed Plan Of Treatment Future Test Test Name Order Date COLONOSCOPY 08/15/2020 COLONOSCOPY 01/01/2022 Insurance Providers Payer Name Payer Address Payer Phone Subscriber Number Group Number Insured Name Patient Relationship to Insured Coverage Start Date Coverage End Date [facility] [address] [address] [place] [address] [id number] DIANA MCNAIR Self - patient is the insured [employer] [address] [place] [address] [id number] DIANA MCNAIR Self - patient is the insured Medical (General) History Medical History History ICD Code Hypertension Denies [place],DM,CVA,Lung disease,renal dise ase Negative colonoscopy in 09/17 10, and negative limited exam in 2005 at [facility] Negative Cologuard in 2019 + Cologuard in 11/2021 Surgical History Surgery Date(Month/Year) Tubal ligation
--- OUTSIDE RECORDS SUMMARY | 2024-09-30 09:20 | XMS_ITS | Clinical Summary ---
Author Organization [facility] Address [address] [place] [address] Care Team Providers Care Regional Director Name Role Phone Unavailable Primary Care Provider [...] - 1-dose 75+ series) 09/23/2022 Influenza Vaccine (Season Ended) 2024 Hepatitis B Vaccines Aged Out No long er eligible based on patient's age to complete this topic RSV Ped < 20 months Aged Out No longe r eligible based on patient's age to complete this topic
[2024-09-30 11:02] LABS: MANUAL DIFF FLAG NO
[2024-09-30 11:23] LABS: Hematocrit 40.2 % (37.0-47.0); Hemoglobin 13.2 g/dl (12.0-16.0); Imm Gran Abs Auto 0.03 X10*3/uL (0.00-0.03); Imm Gran Pct Auto 0.6 % (0.0-0.4); Lymphocytes Absolute Auto 1.4 X10*3/uL (1.2-4.9); Mean Corpuscular HGB Conc 32.8 g/dl (31.0-35.0); Mean Corpuscular Hemoglobin 31.2 pg (27.0-33.0); Mean Corpuscular Volume 95.0 fL (80.0-98.0); NRBC Abs Auto 0.000 X10*3/uL (0.0-0.012); NRBC Pct Auto 0.0 /100WBC (0.0-0.2); Platelet Count 227 X10*3/uL (160-400); Red Blood Count 4.23 X10*6/uL (4.20-5.50); White Blood Count 4.7 X10*3/uL (4.8-10.8)
[2024-09-30 11:51] LABS: Alanine Aminotransferase 19 U/L (0-31); Albumin Level 4.4 g/dL (3.5-5.0); Alkaline Phosphatase 43 U/L (39-117); Anion Gap 13 (12-20); Aspartate Amino Transferase 29 U/L (5-31); Blood Urea Nitrogen 29 mg/dL (9-16); Calcium 9.7 mg/dL (8.4-10.2); Carbon Dioxide 29 mmol/L (22-29); Chloride 105 mmol/L (96-108); Cholesterol 224 mg/dL (<200); Estimated Glomerular Filt Rate > 60; HDL Cholesterol 88 mg/dL (>40); Potassium 4.5 mmol/L (3.3-5.1); Sodium 142 mmol/L (135-145); Total Protein 6.5 g/dL (6.5-8.0); Triglycerides 63 mg/dL (<150)
[2024-09-30 11:55] LABS: Free T4 (Free Thyroxine) 0.77 ng/dL (0.71-1.85); Thyroid Stimulating Hormone 1.57 uIU/mL (0.32-4.0)
[2024-09-30 12:03] LABS: Folate 7.1 ng/mL (> or = 4.0); Vitamin B12 528 pg/mL (200-900)
== END 2024-09-30 09:05 | disposition home or self-care (01) ==
LOC: HO.WFDLDS 09:04
PROVIDERS: Visit Provider Internal Medicine
DX: I10 Essential (primary) hypertension (principal); E78.00 Pure hypercholesterolemia, unspecified
CPT/HCPCS: 36415; 80053; 80061; 82306; 82607; 82746; 84439; 84443; 85025

== ENCOUNTER 2024-10-11 08:57 | Outpatient (AMB) | payer MEDICARE, OTHER, SELFPAY ==
[2024-10-11 09:02] VITALS: BP 122/68; PULSE 55; O2SAT 98; BMI 17.7
--- NOTE | 2024-10-11 09:02 | A.OFFPC_ITS ---
Vital Signs 10/11/24 09:02 10/11/24 09:14 Height 5 ft 3 in Weight 100 lb BMI 17.7 BP 122/68 144/80 H Blood Pressure Location Lt brachial Lt brachial Position Sitting Sitting Pulse 55 Pulse Source Pulse Oximeter Pulse Oximetry (%) 98 Oxygen Delivery Method Room Air Intake Visit Reasons: Annual Exam - see comments Allergies bee pollen (BEE STINGS) Allergy (Severe, Verified 10/11/24 09:09) ANAPHYLAXIS azithromycin (Zithromax) Adverse Reaction (Intermediate, Verified 10/11/24 09:09) Abdominal Pain doxycycline Adverse Reaction (Intermediate, Verified 10/11/24 09:09) Diarrhea Medication List - Last Reconciled 10/11/24 by Carine Shelton MD cholecalciferol (vitamin D3) 25 mcg PO DAILY epinephrine (EpiPen 2-Avi) 0.3 mg (0.3 mL) IM Q15M PRN escitalopram oxalate (Lexapro) 5 mg PO DAILY lisinopril 20 mg PO DAILY Tobacco use date assessed: 05/11/24 Fall risk assessment: 1 Fall in past year Last assessed Fall Risk: 10/11/24 Dental Screening Dental Screen Date: 05/11/24 [facility] Medical History (Updated 08/19/24 @ 13:15 by Caitlin Fry PA-C) Knee pain, right Breast cancer screening by mammogram Positive colorectal cancer screening using Cologuard test Colon cancer screening Hypertension (~10/2015) Stress incontinence Personal history of nicotine dependence Vitamin D deficiency Osteopenia (~2013) Tubular adenoma of colon (~12/2021) Cervical spondylosis Surgical History History of basal cell carcinoma (BCC) excision History of tubal ligation History of colonoscopy History of cataract surgery Family History Mother Lung cancer Maternal Grandfather Colon cancer Maternal Uncle Prostate cancer Social History Housing: House Alcohol intake: current Alcohol intake frequency: 0-2 drinks per day Comment: daily 1-2 glasses of wine Patient Tobacco Use Status: Former Tobacco user Tobacco use type: Cigarette Cigarettes Per Day: 10 Years Smoked: (onset 27, 1/2ppd x 45yrs - 23PYH - quit 2019) e-Cigarette/Vaping Use: Never Used Second Hand Smoke Exposure: No Current occupational status: retired Cognitive needs: No Hearing needs: No Vision needs: Yes Questionnaire PHQ-9 Over the last 2 weeks, how often have you been bothered by any of the following problems? 1. Little interest or pleasure in doing things: several days 2. Feeling down, depressed, or hopeless: several days 3. Trouble falling or staying asleep, or sleeping too much: several days 4. Feeling tired or having little energy: several days 5. Poor appetite or overeating: not at all 6. Feeling bad about yourself - or that you are a failure or have let yourself or your family down: not at all 7. Trouble concentrating on things, such as reading the newspaper or watching television: not at all 8. Moving or speaking so slowly that other people could have noticed. Or the opposite - being so fidgety or restless that you have been moving around a lot more than usual: not at all 9. Thoughts that you would be better off or of hurting yourself in some w ay: not at all Total score: 4 Depression Screening Interpretation: Positive Depression Screening Done: Yes 04819 - PHQ-9 Billing: Yes Source: Developed by Drs. Saleem Flanagan, Mary Charles, Cecil Araiza and colleagues, with an educational judy from [employer]. Thrive Questionnaire Date Thrive assessed: 10/11/24 I am a: Patient What is your living situation today?: I have a steady place to live Within the past 12 months, did the food you bought not last and you didn't have the money to get more?: Never true Within the past 12 months, did you worry whether your food would run out before you got money to buy more?: Never true Do you have trouble paying for medicines?: No Do you have trouble getting transportation to medical appointments?: No Do you have trouble paying your heating and electricity bill?: No Do you have trouble taking care of your child, family member or friend?: No Do you have trouble with day-to-day activities such as bathing, preparing meals, shopping, managing finances, etc.?: No Are you currently unemployed and looking for a job?: No Are you interested in more education?: No Please select the resources that you would like help with: None Currently or been in a relationship where the following occur: No concerns reported THRIVE Score: 0 AUDIT C Alcohol Use Questionnaire (AUDIT-C) 1. How often do you have a drink containing alcohol?: 4 or more times a week 2. How many drinks containing alcohol do you have on a typical day when you are drinking?: 1 or 2 3. How often do you have six or more drinks on one occasion?: Never Total Score: 4 JAMES-7 AMB Questionnaire JAMES-7 Date JAMES - 7 assessed: 10/11/24 Feeling nervous, anxious, or on edge: 2 = More than half the days Not being able to stop or control worryin = More than half the days Worrying too much about different things: 3 = Nearly every day Trouble relaxin = Nearly every day Being so restless that it is hard to sit still: 0 = Not at all Becoming easily annoyed or irritable: 2 = More than half the days Feeling afraid as if something awful might happen: 2 = More than half the days Total JAMES-7 score (0-4 normal; 5-9 mild; 10-14 moderate; 15-21 severe): 14 Source: Developed by Drs. Saleem Flanagan, Mary Charles, Cecil Araiza and colleagues, with an educational judy from [employer]. JAMES-7 Assessment Billing JAMES-7 Assessment Tool: JAMES-7 Assessment 56789 Review of Systems Const Denies poor appetite and Denies weakness Eyes Denies no additional complaints ENT Reports Normal hearing present, Denies dizziness, Denies nasal congestion, Denies tinnitus and Denies sore throat Card Denies chest pain, Denies syncope, Denies rapid heart rate and Denies dyspnea Resp Denies cough and Denies dyspnea GI Denies change in stool character, Reports constipation, Denies diarrhea, Denies nausea and Denies vomiting Denies urinary frequency, Denies difficulty voiding and Denies dysuria Neuro Reports Normal hearing present, Denies confusion, Denies dizziness, Denies syncope and Denies weakness Psych Denies confusion Physical exam (Primary Care) Vital Signs: Oxygen Delivery Method Room Air 10/11/24 09:02 Tobacco/Smoking Status: Tobacco use Status Tobacco use date assessed 05/11/24 05/11/24 11:39 Patient Tobacco Use Status Former Tobacco user 05/11/24 11:39 Tobacco use type Cigarette 05/11/24 11:39 e-Cigarette/Vaping Use Never Used 05/11/24 11:39 Depression Screening Interpretation: Positive Thrive Assessment: Date of Thrive Assessment Date Thrive assessed 05/11/24 05/11/24 11:39 Currently or been in a relationship where the following occur: No concerns reported Const General: No confusion Orientation/consciousness: No confusion HENMT Head: Yes normocephalic Ears: external ears normal and TM's normal bilaterally Face and sinus: Yes normal facial exam Mouth: moist mucous membranes Throat: Yes tonsils normal Eyes Conjunctivae: conjunctivae normal Pupils: Equal, round and reactive pupils present and Pupil accommodation reflex normal Direct Ophthalmoscopy: normal light reflex Neck Neck: No lymphadenopathy Thyroid: Thyroid normal Chest Chest palpation & inspection: normal inspection of the chest Resp Effort & Inspection: normal respiratory effort and no audible wheezes Auscultation: clear to auscultation bilaterally, no crackles, no wheezes and lung sounds not diminished Cardio Rate: regular rate Rhythm: regular rhythm Peripheral pulses: radial pulses present and dorsalis pedis present GI Palpation (GI): no masses Auscultation: normal bowel sounds and normoactive bowel sounds Rectal Exam - Female: deferred Skin General skin exam: no rashes or lesions noted Rashes: no rashes Neuro General: No confusion Cranial nerves: Yes Equal, round and reactive pupils present and Yes Normal hearing present Cognition (Neuro): normal cognition Gait exam (Neuro): Normal gait present Motor exam (neuro): 5/5 motor strength present throughout Deep tendon reflexes (DTR's): Right brachioradialis reflex intensity grade: 2+, Left brachioradialis reflex intensity grade: 2+, Right patellar reflex intensity grade: 2+ and Left patellar reflex intensity grade: 2+ Extrem General: No edema Coding Level of Care Code Est Pt Prev Care >65y(53512) Diagnoses Personal history of nicotine dependence Z87.891 Osteopenia of multiple sites M85.89 Osteopenia location: multiple sites Essential hypertension I10 Hypertension type: essential hypertension Generalized anxiety disorder F41.1 Annual physical exam Z00.00 Additional Codes JAMES-7 Assessment Billing - AJMES-7 Assessment Tool: JAMES-7 Assessment 82699 ([id number]) PHQ-9 - 59623 - PHQ-9 Billing: Yes ([id number]) Assessment & Plan Assessment & Plan (1) Personal history of nicotine dependence: Comment: (former smoker - onset 27, 1/2ppd x 45yrs - 23PYH - quit 2018) Code(s): Z87.891 - Personal history of nicotine dependence Category: Medical Plan: Patient has a scheduled CT of the chest in 10/26/2024 (2) Osteopenia: Onset Date: ~2013 Comment: (Bone Dexa Femoral T-score: -1.7 on 07/09/13; -2.2 on 10/15/22) Code(s): M85.80 - Other specified disorders of bone density and structure, unspecified site Category: Medical Qualifiers: Osteopenia location: multiple sites Qualified Code(s): M85.89 - Other specified disorders of bone density and structure, multiple sites Plan: Bone density up-to-date and reminded about no bone density (3) Hypertension: Onset Date: ~10/2015 Code(s): I10 - Essential (primary) hypertension Category: Medical Qualifiers: Hypertension type: essential hypertension Qualified Code(s): I10 - Essential (primary) hypertension Plan: Continue with blood pressure medication. Decrease salt intake and exercise on lisinopril 20 mg once a day (4) Generalized anxiety disorder: Code(s): F41.1 - Generalized anxiety disorder Category: Medical Plan: Continue with present medication Lexapro 5 mg once a day (5) Annual physical exam: Code(s): Z00.00 - Encounter for general adult medical examination without abnormal findings Category: Medical Plan: Patient is advised to eat healthy, keep well hydrated, keep active and have adequate sleep. Plan History of Present Illness The patient is a 79-year-old female presenting for an annual physical examination and management of chronic conditions. She has a history of tubular adenoma, with her last colonoscopy performed in [facility]. Osteopenia was noted on her last bone density scan in September 2022. The patient has a diagnosis of hypertension, managed with lisinopril 20 mg once daily. She also has generalized anxiety disorder, for which she takes escitalopram 5 mg daily. She follows up with dermatology for rosacea, treated with metronidazole topical cream. Her blood work in September 2024 showed mild glucose elevation, but normal blood count, electrolytes, renal function, liver function, and lipid profile. Her LDL cholesterol was 124 mg/dL, and all other parameters including vitamin B12, vitamin D, folic acid, and thyroid function were within normal limits. Preventative care measures include a mammogram up to date as of October 2023, and vaccinations including shingles, tetanus, and pneumonia are current. Health Maintenance - Mammogram up to date as of October 2023 - Vaccinations: Shingles, tetanus (2021), pneumonia - Scheduled CT of the chest on October 26, 2024 Social History Review of Systems Physical Exam General: Cooperative, healthy appearing, comfortable, no acute distress and well developed Orientation: Patient oriented x3 Limitations: No limitations Head: Normal to inspection Ears: Hearing grossly normal bilaterally Nose: Normal external nose present Face and sinus: Normal facial exam Eyes: Appearance normal, both eyes and all related structures Neck: Normal visual inspection and Yes full ROM Respiratory: Normal respiratory effort and able to speak in complete sentences. Clear to auscultation bilaterally Cardiovascular: Regular rate and rhythm. Normal S1 and S2 GI: Normal to inspection. Soft to palpation and nontender Skin: No rashes or lesions noted Neuro: Patient oriented x3 Extremities: Normal to inspection Results - Labs: Mild glucose elevation, normal blood count, electrolytes, renal function, liver function, LDL cholesterol 124 mg/dL, normal vitamin B12, vitamin D, folic acid, and thyroid function Plan The patient will continue with her current medication regimen, including lisinopril 20 mg daily for hypertension and escitalopram 5 mg daily for anxiety. She is scheduled for a CT scan of the chest on October 26, 2024, as part of her ongoing health maintenance. Preventative care measures such as mammograms and vaccinations are up to date, and she will continue to follow up with dermatology for her rosacea management. Patient was informed and verbally consented to the use of an ambient scribe for clinic note documentation during this visit. Discussion Notes I discussed with the patient the importance of continuing her current medication regimen for hypertension and anxiety management. We reviewed her upcoming CT scan appointment and emphasized the need for regular follow-ups with dermatology for her rosacea. I also confirmed that her vaccinations are up to date and discussed the significance of maintaining these preventative measures. Patient Instructions - Continue taking lisinopril 20 mg daily for blood pressure management. - Take escitalopram 5 mg daily for anxiety. - Attend scheduled CT scan on October 26, 2024. - Follow up with dermatology as advised. - Keep vaccinations up to date. Orders: Orders XR DEXA axial skeleton Today M81.0 - Age-related osteoporosis without current pathological fracture, M85.89 - Other specified disorders of bone density and structure, multiple sites MM tomosynthesis screening BI Today Z12.31 - Encounter for screening mammogram for malignant neoplasm of breast Medications: Refilled escitalopram oxalate (Lexapro) 5 mg PO DAILY 90 tabs 3RF F41.1 - Generalized anxiety disorder
--- OUTSIDE RECORDS SUMMARY | 2024-10-11 09:11 | XMS_ITS | Clinical Summary ---
Author Organization [facility] Address [address] [place] [address] Care Team Providers Care Hedge Fund Principal Name Role Phone Unavailable Primary Care Provider [...] 1-dose 75+ series) 09/23/2022 Influenza Vaccine (#1) 2024 Hepatitis B Vaccines Aged Out No long er eligible based on patient's age to complete this topic RSV Ped < 20 months Aged Out No longe r eligible based on patient's age to complete this topic
--- OUTSIDE RECORDS SUMMARY | 2024-10-11 09:11 | XMS_ITS | Patient Health Record ---
Author Organization [facility] Address [address] [place] [address] Care Team Providers Care Mems Device Scientist Name Role Phone Carine Shelton MD Primary Care Provider Saleem Johansen [phone] Allergies Allergen (clinical drug ingredient) Drug/Non Drug [...] Status Risk Notes Problem Colon cancer screening (247909204) Colon cancer screening (Z12.11) Active confirmed Problem 679618010 Encounter for screening for malignant neoplasm of colon (Z12.11) Active confirmed Problem 146013297911909 Preprocedural examination (Z01.818) Active confirmed Problem Diverticulosis of colon (108611334) Diverticulosis of colon (K57.30) Active confirmed Problem Abnormal feces (081564690) Positive colorectal cancer screening using Cologuard test (R19.5) Active confirmed Plan Of Treatment Future Test Test Name Order Date COLONOSCOPY 08/15/2020 COLONOSCOPY 01/01/2022 Insurance Providers Payer Name Payer Address Payer Phone Subscriber Number Group Number Insured Name Patient Relationship to Insured Coverage Start Date Coverage End Date [facility] [address] [address] [place] [address] [id number] DIANA MCNAIR Self - patient is the insured [employer] [address] [place] [address] [id number] DIANA MCNAIR Self - patient is the insured Medical (General) History Medical History History ICD Code Hypertension Denies [place],DM,CVA,Lung disease,renal dise ase Negative colonoscopy in 09/17 10, and negative limited exam in 2005 at [facility] Negative Cologuard in 2019 + Cologuard in 11/2021 Surgical History Surgery Date(Month/Year) Tubal ligation
[2024-10-11 09:14] VITALS: BP 144/80
== END 2024-10-11 09:39 | disposition home or self-care (01) ==
LOC: HO.HMCH 08:58
PROVIDERS: PCP Internal Medicine; Visit Provider Internal Medicine
DX: Z87.891 Personal history of nicotine dependence (principal); M85.89 Other specified disorders of bone density and structure, multiple sites; I10 Essential (primary) hypertension; F41.1 Generalized anxiety disorder; Z00.00 Encounter for general adult medical examination without abnormal findings

== ENCOUNTER → 2024-10-11 08:57 | Outpatient (BNVA) | payer MEDICARE, OTHER, SELFPAY | PROVIDERS: PCP Internal Medicine; Visit Provider Internal Medicine | DX: Z00.00 Encounter for general adult medical examination without abnormal findings (principal); M85.89 Other specified disorders of bone density and structure, multiple sites; I10 Essential (primary) hypertension; F41.1 Generalized anxiety disorder; Z87.891 Personal history of nicotine dependence | CPT/HCPCS: 96127; 99397 ==

== ENCOUNTER 2024-10-26 07:21 | Outpatient (REF) | payer MEDICARE, OTHER, SELFPAY ==
--- NOTE | ~2024-10-26 | CT_ITS ---
EXAMINATION: CT LUNG SCREENING HISTORY: Z87.891 - Personal history of nicotine dependence TECHNIQUE: Low dose axial images were obtained from the sternal notch to upper abdomen without IV contrast per standard departmental protocol. Sagittal and coronal reformatted images were also obtained and reviewed. One or more of the following techniques was used for dose reduction: Automated exposure control, adjustment of the mA and/or kV according to patient size, use of iterative reconstruction technique. DLP: 32 mGy-cm COMPARISON: Comparison is made with the prior examination dated 09/19/2023. FINDINGS: Lung nodules: Again seen are scattered bilateral pulmonary nodules including a 5 mm nodule in the right lower lobe (series 4, image 68), 3 mm nodules in the right middle lobe (series 4, images 74 and 76), a 3 mm nodule in the right lower lobe (series 4, image 103), a 2 mm nodule at the left lung apex (series 4, image 23), and 3 mm nodules in the left lower lobe (series 4, images 105 and 111). No new pulmonary nodules are identified. Emphysema: none Coronary Calcification: mild Aortic Arch Calcification: mild. Again seen is dilatation of the ascending thoracic aorta measuring up to 3.8 cm in diameter. Potentially Significant Incidentals : none Additional Chest Findings: There is no pleural or pericardial effusion. No mediastinal or axillary lymphadenopathy is identified. Visualized upper abdomen: The visualized portions of the liver, spleen, and adrenals have an unremarkable unenhanced appearance. CT/CT lung screening IMPRESSION: No suspicious pulmonary nodules are identified. LUNG-RADS ASSESSMENT: Lung-RADS 2: Benign MANAGEMENT: Continue annual screening with LDCT in 12 months Category S: N/A Electronically signed by: Saleem Franco MD 10/26/2024 07:55 AM EDT
== END 2024-10-26 07:22 | disposition home or self-care (01) ==
LOC: HO.CT 07:21
PROVIDERS: PCP Internal Medicine; Visit Provider Physician Assistant Medical
DX: Z12.2 Encounter for screening for malignant neoplasm of respiratory organs (principal); Z87.891 Personal history of nicotine dependence
CPT/HCPCS: 71271

== ENCOUNTER → 2024-10-26 07:23 | Outpatient (BNV) | payer MEDICARE, OTHER, SELFPAY | PROVIDERS: PCP Internal Medicine; Visit Provider Radiology Diagnostic Radiology | DX: Z87.891 Personal history of nicotine dependence (principal) | CPT/HCPCS: 71271 ==

== ENCOUNTER 2024-11-10 12:45 | Outpatient (AMB) | payer MEDICARE, OTHER, SELFPAY ==
--- OUTSIDE RECORDS SUMMARY | 2024-05-08 10:21 | XMS_ITS | Encounter Summary ---
Author Organization [facility] Address [address] [place] [address] [place] [address] Phone Care Team Providers Care Manager Wind Name Role Phone Carine Shelton MD Primary Care Provider [phone] Encounter Details Date Type Department Care Team (Late st Contact Info) Description 05/08/2024 9:21 AM EST Hospital Encounter [facility] [address] [place] [address] Kamar Moser PA-C [address] [place] [address] [phone] [email or web address] Social History Tobacco Use Types Packs/Day Years [...] clinician's provided indication for this examination in [facility]: Cough; cough, prior smoking 10 pk yrs [...] clinician's provided indication for this examination in [facility]:Cough; cough, prior smoking 10 pk yrs qhit [...] documented as of this encounter Care Teams Manager Wind Relationship Specialty Start Date End Date Carine Shelton MD [address] [place] [address] PCP - General 02/24/24 documented as of this encounter Additional Source Comments The information contained in this document represents components of the legal health record. It is not the complete legal health record.[facility]
--- NOTE | 2024-11-10 12:45 | MHC.PC.OV ---
Intake Visit Reasons: COVID pos. 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 Supervisor: Not Required per policy Accompanied by: Self / Same As Patient Allergies bee pollen (BEE STINGS) Allergy (Severe, Verified 11/10/24 12:45) ANAPHYLAXIS azithromycin (Zithromax) Adverse Reaction (Intermediate, Verified 11/10/24 12:45) Abdominal Pain doxycycline Adverse Reaction (Intermediate, Verified 11/10/24 12:45) Diarrhea Medication List - Last Reconciled 11/10/24 by Carine Shelton MD cholecalciferol (vitamin D3) 25 mcg PO DAILY epinephrine (EpiPen 2-Avi) 0.3 mg (0.3 mL) IM Q15M PRN escitalopram oxalate (Lexapro) 5 mg PO DAILY lisinopril 30 mg PO DAILY nirmatrelvir-ritonavir 300 mg (150 mg x 2)-100 mg (Paxlovid) take TWO 150 mg tablets of nirmatrelvir with ONE 100 mg tablet of ritonavir twice daily for 5 days PO Tobacco use date assessed: 05/11/24 Fall risk assessment: No Falls in past year Last assessed Fall Risk: 11/10/24 Dental Screening Dental Screen Date: 05/11/24 HPI COVID pos. HPI Details sore throat, myalgia , sneezing this morning tested for COVID and was positive [facility] Medical History (Updated 11/10/24 @ 13:10 by Carine Shelton MD) Ascending aorta dilatation Knee pain, right Breast cancer screening by mammogram Positive colorectal cancer screening using Cologuard test Colon cancer screening Hypertension (~10/2015) Stress incontinence Personal history of nicotine dependence Vitamin D deficiency Osteopenia (~2013) Tubular adenoma of colon (~12/2021) Cervical spondylosis Surgical History History of basal cell carcinoma (BCC) excision History of tubal ligation History of colonoscopy History of cataract surgery Family History Mother Lung cancer Maternal Grandfather Colon cancer Maternal Uncle Prostate cancer Social History Housing: House Alcohol intake: current Alcohol intake frequency: 0-2 drinks per day Comment: daily 1-2 glasses of wine Patient Tobacco Use Status: Former Tobacco user Tobacco use type: Cigarette Cigarettes Per Day: 10 Years Smoked: (onset 27, 1/2ppd x 45yrs - 23PYH - quit 2019) Packs per year/per ci.00 e-Cigarette/Vaping Use: Never Used Second Hand Smoke Exposure: No service: No Current occupational status: retired Cognitive needs: No Hearing needs: No Vision needs: Yes Questionnaire Thrive Questionnaire Date Thrive assessed: 10/11/24 JAMES-7 AMB Questionnaire JAMES-7 Date JAMES - 7 assessed: 10/11/24 Source: Developed by Drs. Saleem Flanagan, Mary Charles, Cecil Araiza and colleagues, with an educational judy from [employer]. Physical exam (Primary Care) Tobacco/Smoking Status: Tobacco use Status Tobacco use date assessed 05/11/24 11/10/24 12:48 Patient Tobacco Use Status Former Tobacco user 11/10/24 12:48 Tobacco use type Cigarette 11/10/24 12:48 e-Cigarette/Vaping Use Never Used 11/10/24 12:48 Thrive Assessment: Date of Thrive Assessment Date Thrive assessed 10/11/24 11/10/24 12:48 Telehealth Telehealth Telehealth Platform: Telephone Location of provider rendering services: practice address Location of patient: address on file Patient Identification confirmed using: Name, : Yes Telehealth method: voice only Patient verbally consented to treatment: Yes Patient verbally consented to billing insurance company: Yes Patient informed of any privacy concerns related to visit: Yes Minutes spent on Phone/Video with Pt.: 15 Coding Level of Care Code Tele Est Pt Level 3 (50474) Diagnoses COVID-19 virus infection U07.1 Assessment & Plan Assessment & Plan (1) COVID-19 virus infection: Comment: November 10, 2024 Code(s): U07.1 - COVID-19 Category: Medical Plan: For the sore throat can take Cepacol lozenges, discussed about Delsym to help with dry cough so she can rest and advised to increase oral fluids. Patient also can take Tylenol for chills and fever. Antiviral sent in. Plan History of Present Illness The patient is a 79-year-old female presenting with symptoms consistent with a COVID-19 infection. She reports a sore throat, cough, body aches, and frequent sneezing, describing the condition as similar to a severe cold. She tested positive for COVID-19 on the morning of the visit. The patient has a history of hypertension, mild Chronic Obstructive Pulmonary Disease (COPD), and ascending thoracic aorta dilatation. She is a former smoker, which may contribute to her respiratory condition. Review of Systems - Respiratory: Reports sore throat, cough, and frequent sneezing. - Musculoskeletal: Reports body aches. Plan The patient was prescribed Paxlovid to help shorten the duration of the COVID-19 infection and alleviate symptoms. She was advised to use Cepacol lozenges for sore throat relief and Delsym for managing dry cough. For muscle aches, she was recommended to take Tylenol, although she has been using Advil. The prescription for Paxlovid was sent to the [facility] pharmacy in [place], and the patient was encouraged to start the antiviral treatment as soon as possible. Patient was informed and verbally consented to the use of an ambient scribe for clinic note documentation during this visit. Discussion Notes I discussed with the patient the use of Paxlovid as an antiviral treatment to help shorten the duration of her COVID-19 infection and improve her symptoms. We talked about the side effects, including the unpleasant taste of the medication, and confirmed that it is administered in pill form. I also recommended Cepacol lozenges for her sore throat and Delsym for her cough, and advised her to take Tylenol for muscle aches. Patient Instructions - Start taking Paxlovid as soon as possible to help with COVID-19 symptoms. - Use Cepacol lozenges for sore throat relief. - Take Delsym for dry cough management. - Use Tylenol for muscle aches, but Advil is also acceptable. 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 Medications: New nirmatrelvir-ritonavir 300 mg (150 mg x 2)-100 mg (Paxlovid) take TWO 150 mg tablets of nirmatrelvir with ONE 100 mg tablet of ritonavir twice daily for 5 days PO 30 ea 0RF U07.1 - COVID-19
--- OUTSIDE RECORDS SUMMARY | 2024-11-10 13:15 | XMS_ITS | Clinical Summary ---
Author Organization [facility] Address [address] [place] [address] Care Team Providers Care Hygiene Coordinator Name Role Phone Unavailable Primary Care Provider [...]
--- OUTSIDE RECORDS SUMMARY | 2024-11-10 13:15 | XMS_ITS | Patient Health Record ---
Author Organization [facility] Address [address] [place] [address] Care Team Providers Care Mail Sorter Name Role Phone Carine Shelton MD Primary Care Provider Saleem Johansen [phone] Allergies Allergen (clinical drug ingredient) Drug/Non Drug [...] Status Risk Notes Problem Colon cancer screening (228357078) Colon cancer screening (Z12.11) Active confirmed Problem 311260337 Encounter for screening for malignant neoplasm of colon (Z12.11) Active confirmed Problem [id number] Preprocedural examination (Z01.818) Active confirmed Problem Diverticulosis of colon (534555051) Diverticulosis of colon (K57.30) Active confirmed Problem Abnormal feces (669671226) Positive colorectal cancer screening using Cologuard test (R19.5) Active confirmed Plan Of Treatment Future Test Test Name Order Date COLONOSCOPY 08/15/2020 COLONOSCOPY 01/01/2022 Insurance Providers Payer Name Payer Address Payer Phone Subscriber Number Group Number Insured Name Patient Relationship to Insured Coverage Start Date Coverage End Date [facility] [address] [place] [address] [id number] DIANA MCNAIR Self - patient is the insured [employer] [address] [place] [address] [id number] DIANA MCNAIR Self - patient is the insured Medical (General) History Medical History History ICD Code Hypertension Denies MS,DM,CVA,Lung disease,renal dise ase Negative colonoscopy in 09/17 10, and negative limited exam in 2005 at [facility] Negative Cologuard in 2019 + Cologuard in 11/2021 Surgical History Surgery Date(Month/Year) Tubal ligation
== END 2024-11-10 14:40 | disposition home or self-care (01) ==
LOC: HO.HMCH 12:45
PROVIDERS: PCP Internal Medicine; Visit Provider Internal Medicine
DX: U07.1 COVID-19 (principal)

== ENCOUNTER 2024-11-12 07:20 | Emergency (ER) | payer MEDICARE, OTHER, SELFPAY ==
[2024-11-12 07:28] VITALS: BP 184/80; PULSE 80; RESP 18; TEMP 36.6; O2SAT 98; BMI 18.3
[2024-11-12 08:00] VITALS: BP 130/61; PULSE 66; RESP 18; TEMP 36.9; O2SAT 98
--- NOTE | 2024-11-12 08:27 | ED.GENADULT ---
HPI - General Adult General Chief complaint: General Medical Stated complaint: Covid +, stung by bee and is allergic Time Seen by Provider: 11/12/24 08:27 Source: patient Mode of arrival: ambulatory Limitations: no limitations History of Present Illness ED Provider: HPI narrative: Patient was stung by a bee on right hand at 06:45 and as she has had a prior reaction of nausea and urticaria she used her EpiPen, she did not have any symptoms this time, she is also COVID positive for the past 2 days. Has had no wheezing, no swelling of the lips, no nausea or vomiting. Related Data Home Medications ?Medication ?Instructions ?Recorded ?Confirmed cholecalciferol (vitamin D3) 25 25 mcg PO DAILY 08/01/21 11/10/24 mcg (1,000 unit) capsule Previous Rx's ?Medication ?Instructions ?Recorded epinephrine 0.3 mg/0.3 mL 0.3 mg (0.3 mL) IM Q15M PRN 09/29/23 injection, auto-injector (EpiPen anaphylaxis #2 ea 2-Avi) escitalopram oxalate 5 mg tablet 5 mg PO DAILY #90 tabs 10/11/24 (Lexapro) lisinopril 30 mg tablet 30 mg PO DAILY #30 tabs 10/29/24 nirmatrelvir 300 mg (150 mg See Rx Instructions PO .COMPLEX 11/10/24 x2)-ritonavir 100 mg tablet,dose #30 ea pack (Paxlovid) codeine 10 mg-guaifenesin 100 mg/5 5 ml PO Q6H PRN cough #118 mL 11/12/24 mL oral liquid epinephrine 0.3 mg/0.3 mL 0.3 mg (0.3 mL) IM Q4H PRN 11/12/24 injection, auto-injector (EpiPen anaphylaxis #2 ea 2-Avi) ondansetron 4 mg disintegrating 4 mg PO Q8H PRN nausea and 11/12/24 tablet vomiting #20 tabs prednisone 20 mg tablet 40 mg (2 x 20 mg) PO DAILY 4 days 11/12/24 #8 tabs Allergies Allergy/AdvReac Type Severity Reaction Status Date / Time bee pollen (BEE STINGS) Allergy Severe ANAPHYLAXIS Verified 11/12/24 19:54 azithromycin (Zithromax) AdvReac Intermediate Abdominal Verified 11/12/24 19:54 Pain doxycycline AdvReac Intermediate Diarrhea Verified 11/12/24 19:54 Review of Systems Constitutional: Constitutional: Reports as per [facility] Past Medical History Medical History Ascending aorta dilatation Knee pain, right Breast cancer screening by mammogram Positive colorectal cancer screening using Cologuard test Colon cancer screening Hypertension (~10/2015) Stress incontinence Personal history of nicotine dependence Vitamin D deficiency Osteopenia (~2013) Tubular adenoma of colon (~12/2021) Cervical spondylosis Surgical History History of basal cell carcinoma (BCC) excision History of tubal ligation History of colonoscopy History of cataract surgery Family History Family History Mother Lung cancer Maternal Grandfather Colon cancer Maternal Uncle Prostate cancer Social History Social History Housing: House Alcohol intake: current Alcohol intake frequency: 0-2 drinks per day Comment: daily 1-2 glasses of wine Patient Tobacco Use Status: Former Tobacco user Tobacco use type: Cigarette Cigarettes Per Day: 10 Years Smoked: (onset 27, 1/2ppd x 45yrs - 23PYH - quit 2018) e-Cigarette/Vaping Use: Never Used Second Hand Smoke Exposure: No service: No Current occupational status: retired Cognitive needs: No Hearing needs: No Vision needs: Yes Physical Exam ED Vital Signs: Vital Signs - 24 hr 11/12/24 07:28 11/12/24 08:00 Temperature 98 F 98.5 F Pulse Rate 80 66 Respiratory Rate 18 18 Blood Pressure 184/80 H 130/61 Pulse Oximetry 98 98 Oxygen Delivery Method Room Air Room Air BMI result Body Mass Index 18.3 Const Other: Gen: ?Overall well-appearing patient HEENT: PERRLA, EOMI, MMM, Neck: Supple, no LAD CV: RRR, no obvious murmurs appreciated Resp: ?No wheezing rales rhonchi no stridor moving air well Abd: ?Bowel sounds are present, no tenderness no rebound no rigidity MSK: FROM, strength 5/5 all extremities Skin: I do not see any evidence of right hand edema Neuro: ?Alert and oriented x3, moving upper and lower extremities symmetrically, no obvious facial asymmetry noted Medical Decision Making Medical Decision Making MDM Narrative: No evidence for diffuse urticaria, no evidence for angioedema, she is not hypotensive I do not suspect underlying anaphylaxis, no evidence of cellulitis or trauma, we will anticipate discharge home with steroids and refill EpiPen we have discussed when to use EpiPen. Differential Diagnosis Differential Diagnoses: The differential diagnosis associated with the presentation includes (See above) Discharge Plan Discharge Clinical Impression: Allergic reaction Patient Disposition: Home, Self-Care Instructions: General Allergic Reaction (ED) Additional Instructions: Take your medications as prescribed. If you were prescribed antibiotics today, it is important that you take your medication to their entirety, do not skip any doses, do not finish them early. Follow-up with your primary care provider this week. Return to the emergency department with new or worsening symptoms. Such as fevers, chills, chest pain, shortness of breath, nausea, vomiting, dizziness, headache, vision changes, lethargy In case of emergency call 911 How to use an EpiPen: ? Place the orange tip against the middle of the outer thigh. ? Swing and push the auto-injector firmly into the thigh until it ?clicks? ? Hold firmly in place for three seconds?count slowly, ?1, 2, 3? An EpiPen has been sent to your pharmacy this should only be used in severe emergency such as inability to breathe trouble speaking, shortness breath or any signs of anaphylaxis as discussed. If he use an EpiPen it is crucial you come in to an emergency department to be evaluated as you can have a rebound effect. Please follow-up with an allergy doctor. Prescriptions: New epinephrine [EpiPen 2-Avi] 0.3 mg/0.3 mL auto-injector 0.3 mg IM Q4H PRN (Reason: anaphylaxis) Qty: 2 0RF No Action lisinopril 30 mg tablet 30 mg PO DAILY Qty: 30 3RF prednisone 20 mg tablet 40 mg PO DAILY 4 Days Qty: 8 0RF ondansetron 4 mg tablet,disintegrating 4 mg PO Q8H PRN (Reason: nausea and vomiting) Qty: 20 0RF codeine-guaifenesin 10-100 mg/5 mL liquid 5 ml PO Q6H PRN (Reason: cough) Qty: 118 0RF cholecalciferol (vitamin D3) 25 mcg (1,000 unit) capsule 25 mcg PO DAILY epinephrine [EpiPen 2-Avi] 0.3 mg/0.3 mL auto-injector 0.3 mg IM Q15M PRN (Reason: anaphylaxis) Qty: 2 0RF Rx Instructions: for 3 doses Paxlovid 300 mg (150 mg x 2)-100 mg tablets,dose pack See Rx Instructions PO .COMPLEX Qty: 30 0RF Rx Instructions: take TWO 150 mg tablets of nirmatrelvir with ONE 100 mg tablet of ritonavir twice daily for 5 days PO escitalopram oxalate [Lexapro] 5 mg tablet 5 mg PO DAILY Qty: 90 3RF Referrals: Po,Carine Muñoz MD [Primary Care Provider, Internal Medicine] Interventions: ED Discharge Assessment Last Done: 11/12/24 09:26 Discharge Date/Time: 11/12/24 09:27 Print Language: Marshallese
[2024-11-12 09:23] VITALS: BP 155/79; PULSE 63; RESP 15; TEMP 36.9; O2SAT 95
[2024-11-12 09:26] VITALS: BP 155/79; PULSE 63; RESP 15; TEMP 36.9; O2SAT 95
== END 2024-11-12 09:27 | disposition home or self-care (01) ==
PROVIDERS: Emergency Provider Emergency Medicine; PCP Internal Medicine
DX: U07.1 COVID-19 (principal); L50.0 Allergic urticaria; R11.0 Nausea; Z87.891 Personal history of nicotine dependence
CPT/HCPCS: 99283

== ENCOUNTER 2024-11-12 19:28 | Emergency (ER) | payer MEDICARE, OTHER, SELFPAY ==
--- OUTSIDE RECORDS SUMMARY | 2024-05-08 10:21 | XMS_ITS | Encounter Summary ---
Author Organization [facility] Address [address] [place] [address] [place] [address] Phone Care Team Providers Care Low Altitude Air Defense Gunner Name Role Phone Carine Shelton MD Primary Care Provider [phone] Encounter Details Date Type Department Care Team (Late st Contact Info) Description 05/08/2024 9:21 AM EST Hospital Encounter [facility] [address] [place] [address] Kamar Moser PA-C [address] [place] [address] [phone] [email or web address] Social History Tobacco Use Types Packs/Day Years [...] clinician's provided indication for this examination in [facility]: Cough; cough, prior smoking 10 pk [...] clinician's provided indication for this examination in [facility]:Cough; cough, prior smoking 10 pk yrs [...] documented as of this encounter Care Teams Low Altitude Air Defense Gunner Relationship Specialty Start Date End Date Carine Shelton MD [address] [place] [address] PCP - General 02/24/24 documented as of this encounter Additional Source Comments The information contained in this document represents components of the legal health record. It is not the complete legal health record.[facility]
--- NOTE | 2024-11-12 | ECG_ITS ---
Test Reason : EKG Blood Pressure : */* mmHG Vent. Rate : 63 BPM Atrial Rate : 63 BPM P-R Int : 166 ms QRS Dur : 80 ms QT Int : 358 ms P-R-T Axes : 72 -16 56 degrees QTcB Int : 366 ms Normal sinus rhythm Normal ECG No previous ECGs available Referred By: Generic ED Physician Electronically Signed By: Juan Carlos Estrada
--- NOTE | ~2024-11-12 | XR_ITS ---
CLINICAL HISTORY: cough, COVID + EXAM: Two views of the chest. COMPARISON: CT/SR - THORAX LUNG_CA_SCREEN (ADULT) - 10/26/24 07:27 EDT FINDINGS: Normal cardiac, mediastinal, and hilar contours. Normal heart size. No pleural effusion or pneumothorax. Hyperexpanded lungs consistent with COPD. No acute airspace opacity. No acute bone finding. IMPRESSION: 1. No acute cardiopulmonary process demonstrated. This document has been electronically signed by: Abdiaziz Montague MD on 11/12/2024 20:50:08
[2024-11-12 19:48] VITALS: BP 144/65; PULSE 80; RESP 18; TEMP 37.3; O2SAT 92; BMI 17.7
--- NOTE | 2024-11-12 19:52 | ED.SOB ---
HPI - SOB/Dyspnea General Chief Complaint: Upper Respiratory Symptoms Stated Complaint: covid +, feeling worse Time Seen by Provider: 11/12/24 22:10 Source: patient and old records reviewed Mode of arrival: ambulatory Limitations: no limitations History of Present Illness ED Provider: OSMIN HELTON Narrative: 79 yo female with PMH of emphysema not on thinners, HTN who notes she started to have URI symptoms on Friday then Friday took COVID test at home which was positive. Her PCP started her on paxlovid yesterday now she has nause and some loose stools. She noted today she has chest congestion and she feels tight. Her sats have been 92%. She does not have a rescue inhaler at home. She did check her O2 walking sat it was 92%. MD elicited complaint: shortness of breath and cough Pertinent past history: other Onset (ago): day(s) (1) Context: recent illness Timing: intermittent Severity: mild Exacerbating factors: exertion Relieving factors: rest Associated symptoms: cough and nausea/vomiting Treatment prior to arrival: none Related Data Home Medications ?Medication ?Instructions ?Recorded ?Confirmed cholecalciferol (vitamin D3) 25 25 mcg PO DAILY 08/01/21 11/10/24 mcg (1,000 unit) capsule Previous Rx's ?Medication ?Instructions ?Recorded epinephrine 0.3 mg/0.3 mL 0.3 mg (0.3 mL) IM Q15M PRN 09/29/23 injection, auto-injector (EpiPen anaphylaxis #2 ea 2-Avi) escitalopram oxalate 5 mg tablet 5 mg PO DAILY #90 tabs 10/11/24 (Lexapro) lisinopril 30 mg tablet 30 mg PO DAILY #30 tabs 10/29/24 nirmatrelvir 300 mg (150 mg See Rx Instructions PO .COMPLEX 11/10/24 x2)-ritonavir 100 mg tablet,dose #30 ea pack (Paxlovid) codeine 10 mg-guaifenesin 100 mg/5 5 ml PO Q6H PRN cough #118 mL 11/12/24 mL oral liquid epinephrine 0.3 mg/0.3 mL 0.3 mg (0.3 mL) IM Q4H PRN 11/12/24 injection, auto-injector (EpiPen anaphylaxis #2 ea 2-Avi) ondansetron 4 mg disintegrating 4 mg PO Q8H PRN nausea and 11/12/24 tablet vomiting #20 tabs prednisone 20 mg tablet 40 mg (2 x 20 mg) PO DAILY 4 days 11/12/24 #8 tabs Allergies Allergy/AdvReac Type Severity Reaction Status Date / Time bee pollen (BEE STINGS) Allergy Severe ANAPHYLAXIS Verified 11/12/24 19:54 azithromycin (Zithromax) AdvReac Intermediate Abdominal Verified 11/12/24 19:54 Pain doxycycline AdvReac Intermediate Diarrhea Verified 11/12/24 19:54 Review of Systems Review of Systems: Constitutional : No Fever, No Chills ENT/Mouth : No sore throat, No Rhinorrhea, No Swallowing Difficulty Eyes: No Eye Pain, No Swelling, No Redness Cardiovascular : No Chest Pain, positive SOB Respiratory : pos Cough, No Sputum, No Wheezing, positive dyspnea Gastrointestinal : No Nausea, No Vomiting, pos Diarrhea, No abdominal Pain, No Hematochezia, No Melena Genitourinary : No Dysuria, No Urinary Frequency, No Hematuria Musculoskeletal : No joint pain, No Myalgias Skin : No Skin Lesions, No rash Neuro : No Weakness, No Numbness, No Dizziness, No Headache Psych : No Anxiety/Panic, No Depression All other systems reviewed and are negative PMFSH Past Medical History Attestation statement: The following information was validated with the patient. Source: old records reviewed Medical History Ascending aorta dilatation Knee pain, right Breast cancer screening by mammogram Positive colorectal cancer screening using Cologuard test Colon cancer screening Hypertension (~10/2015) Stress incontinence Personal history of nicotine dependence Vitamin D deficiency Osteopenia (~2013) Tubular adenoma of colon (~12/2021) Cervical spondylosis Surgical History History of basal cell carcinoma (BCC) excision History of tubal ligation History of colonoscopy History of cataract surgery Family History Family History Mother Lung cancer Maternal Grandfather Colon cancer Maternal Uncle Prostate cancer Social History Social History Housing: House Alcohol intake: current Alcohol intake frequency: 0-2 drinks per day Comment: daily 1-2 glasses of wine Patient Tobacco Use Status: Former Tobacco user Tobacco use type: Cigarette Cigarettes Per Day: 10 Years Smoked: (onset 27, 1/2ppd x 45yrs - 23PYH - quit 2019) Smoked in Last 30 Days: No e-Cigarette/Vaping Use: Never Used Second Hand Smoke Exposure: No Use of substances other than those prescribed or required for medical reasons: No Advance Directives: No Advance Directives Information Provided: No service: No Current occupational status: retired Cognitive needs: No Hearing needs: No Vision needs: Yes Physical Exam Vital Signs: Vital Signs: Last Vital Signs Temp 98.7 F 11/12/24 20:54 Pulse 67 11/12/24 22:39 Resp 18 11/12/24 22:39 BP 164/64 H 11/12/24 20:54 Pulse Ox 93 11/12/24 21:18 O2 Del Method Room Air 11/12/24 21:18 BMI result Body Mass Index 17.7 Appearance: Alert. Oriented X3. No acute distress. Eyes: Pupils equal, round and reactive to light. ENT: Pharynx normal. Neck: Normal inspection. Neck supple. CVS: Normal heart rate and rhythm. Pulses normal. Respiratory: No respiratory distress. Breath sounds diminished Abdomen: Soft and nontender. Skin: Skin warm and dry. Normal skin color. Normal skin turgor. Extremities: No lower extremity edema. Neuro: Oriented X 3. No motor deficit. No sensory deficit. CN2-12 intact Course Course Course Narrative: This is a rapid medical exam. Deferred additional HPI, ROS, PE to primary provider. This is a 79-year-old female who has a history of hypertension who presents to the ER with concern that her oxygen saturation was low at home. Patient was diagnosed with COVID on Friday. She has had fever, chest tightness. Will obtain labs, CXR. VSS Reevaluation(s) Reevaluation #1: 91% O2 sat walking does not need O2 not labored Medications Administered Discontinued Medications Generic Name Dose Route Start Last Admin Trade Name Freq PRN Reason Stop Dose Admin Albuterol/Ipratropium 3 ml 11/12/24 22:18 11/12/24 22:35 Albuterol/Iprat 2.5/0.5mg 3 Ml Ampul.Neb INHALE 11/12/24 22:19 3 ml ONCE ONE Administration Medical Decision Making Medical Decision Making [facility] Narrative: 79 yo female wtih PMH of emphysema but does not need INH, HTN who has had URI symptoms since friday with + COVID test at home. Today she noted her O2 sats are 92% she has no rescue inhalers she feels some tightness of her chest. She is on paxlovid by PCP but has nausea and diarrhea from it. She is worried given the O2 sats. Took motrin this afternoon. Differential Diagnosis Differential Diagnoses: The differential diagnosis associated with the presentation includes low prob VTE - age adjusted ddimer negative pneumonia emphysema no pain in chest to suggest ACS but trop and EKG ordered Admission/Observation Consideration of admission/observation: Escalation of care including admission/observation considered did well with neb therapy - start on low dose prednisone hand her albuterol inhaler Lab Data [facility] Lab Attestation statement: I reviewed the patient's lab results. 11/12/24 20:00 11/12/24 20:00 Labs: Lab Results 11/12/24 11/12/24 Range/Units 20:00 22:21 WBC 5.7 (4.8-10.8) X10*3/uL RBC 4.15 L (4.20-5.50) X10*6/uL Hgb 13.2 (12.0-16.0) g/dl Hct 38.7 (37.0-47.0) % MCV 93.3 (80.0-98.0) fL MCH 31.8 (27.0-33.0) pg MCHC 34.1 (31.0-35.0) g/dl RDW 13.4 (11.0-16.0) % Plt Count 158 L D (160-400) X10*3/uL MPV 10.2 (9.4-12.3) fL Immature Gran % (Auto) 0.3 (0.0-0.4) % Neut % (Auto) 73.4 H (45-73) % Lymph % (Auto) 16.6 L (20-40) % [place] % (Auto) 9.3 (2-11) % Eos % (Auto) 0.2 (0-4) % Baso % (Auto) 0.2 (0-2) % Lymph # (Auto) 1.0 L (1.2-4.9) X10*3/uL [place] # (Auto) 0.5 (0.1-1.2) X10*3/uL Eos # (Auto) 0.0 (0.0-0.4) X10*3/uL Baso # (Auto) 0.0 (0.0-0.2) X10*3/uL Abs Immat Gran (auto) 0.02 (0.00-0.03) X10*3/uL Absolute Neuts (auto) 4.2 (2.0-8.3) x10*3/uL Absolute Nucleated RBC 0.000 (0.0-0.012) X10*3/uL Nucleated RBC % (auto) 0.0 (0.0-0.2) /100WBC D-Dimer High Sensitivty 306 NG/ML Sodium 139 (135-145) mmol/L Potassium 4.7 (3.3-5.1) mmol/L Chloride 102 (96-108) mmol/L Carbon Dioxide 27 (22-29) mmol/L Anion Gap 15 (12-20) BUN 35 H (9-16) mg/dL Creatinine 1.01 (0.5-1.4) mg/dL Estim Creat Clear Calc 33.3 Estimated GFR 53 Random Glucose 110 (60-115) mg/dL Calcium 9.8 (8.4-10.2) mg/dL Troponin I High Sens 7.0 (<3.5-17.0) ng/L Independent Interpretation I performed an independent interpretation of an: EKG and Plain X-Ray (normal ) Interpretation: Rate: 63 Rhythm: NSR [place]: left Normal P waves. Normal L[place]NNETTE. Normal QRS complex. ST T wave : inverted t wave V1 and V2, no DURGA qTC: 366 prior studies: no prior The study has been interpreted contemporaneously by me. . Radiology Impression Discussion of test interpretation with radiology: I have reviewed the radiologist's reading. Prescription Management I considered prescription management with: Antiviral, Antibiotic and Other Discharge Plan Discharge Clinical Impression: Upper respiratory infection, COVID-19 virus infection Patient Disposition: Home, Self-Care Instructions: Wheezing (ED), COVID-19 (Coronavirus Disease 2019) (ED) Additional Instructions: at this time chest xray no pneumonia labs reassuring EKG and test for damage to heart negative blood clot test negative rest and return for any worsening breathing or O2 sats that drop below 90%, severe chest pains you can use the inhaler 2 puffs every 4 hours for wheezing or shortness of breath Prescriptions: New prednisone 20 mg tablet 40 mg PO DAILY 4 Days Qty: 8 0RF ondansetron 4 mg tablet,disintegrating 4 mg PO Q8H PRN (Reason: nausea and vomiting) Qty: 20 0RF codeine-guaifenesin 10-100 mg/5 mL liquid 5 ml PO Q6H PRN (Reason: cough) Qty: 118 0RF No Action lisinopril 30 mg tablet 30 mg PO DAILY Qty: 30 3RF epinephrine [EpiPen 2-Avi] 0.3 mg/0.3 mL auto-injector 0.3 mg IM Q4H PRN (Reason: anaphylaxis) Qty: 2 0RF cholecalciferol (vitamin D3) 25 mcg (1,000 unit) capsule 25 mcg PO DAILY epinephrine [EpiPen 2-Avi] 0.3 mg/0.3 mL auto-injector 0.3 mg IM Q15M PRN (Reason: anaphylaxis) Qty: 2 0RF Rx Instructions: for 3 doses Paxlovid 300 mg (150 mg x 2)-100 mg tablets,dose pack See Rx Instructions PO .COMPLEX Qty: 30 0RF Rx Instructions: take TWO 150 mg tablets of nirmatrelvir with ONE 100 mg tablet of ritonavir twice daily for 5 days PO escitalopram oxalate [Lexapro] 5 mg tablet 5 mg PO DAILY Qty: 90 3RF Print Language: Mohawk
[2024-11-12 20:04] LABS: MANUAL DIFF FLAG NO
[2024-11-12 20:07] LABS: Hematocrit 38.7 % (37.0-47.0); Hemoglobin 13.2 g/dl (12.0-16.0); Imm Gran Abs Auto 0.02 X10*3/uL (0.00-0.03); Imm Gran Pct Auto 0.3 % (0.0-0.4); Lymphocytes Absolute Auto 1.0 X10*3/uL (1.2-4.9); Mean Corpuscular HGB Conc 34.1 g/dl (31.0-35.0); Mean Corpuscular Hemoglobin 31.8 pg (27.0-33.0); Mean Corpuscular Volume 93.3 fL (80.0-98.0); NRBC Abs Auto 0.000 X10*3/uL (0.0-0.012); NRBC Pct Auto 0.0 /100WBC (0.0-0.2); Platelet Count 158 X10*3/uL (160-400); Red Blood Count 4.15 X10*6/uL (4.20-5.50); White Blood Count 5.7 X10*3/uL (4.8-10.8)
[2024-11-12 20:22] LABS: Anion Gap 15 (12-20); Blood Urea Nitrogen 35 mg/dL (9-16); Calcium 9.8 mg/dL (8.4-10.2); Carbon Dioxide 27 mmol/L (22-29); Chloride 102 mmol/L (96-108); Creatinine Clr Calc Pharmacy 33.3; Estimated Glomerular Filt Rate 53; Potassium 4.7 mmol/L (3.3-5.1); Sodium 139 mmol/L (135-145)
[2024-11-12 20:54] VITALS: BP 164/64; PULSE 75; RESP 22; TEMP 37.1; O2SAT 94
--- OUTSIDE RECORDS SUMMARY | 2024-11-12 21:06 | XMS_ITS | Patient Health Record ---
Author Organization [facility] Address [address] [place] [address] Care Team Providers Care Monomer Recovery Operator Name Role Phone Carine Shelton MD Primary Care Provider Saleem Johansen [phone] Allergies Allergen (clinical drug ingredient) Drug/Non Drug [...] Status Risk Notes Problem Colon cancer screening (174626640) Colon cancer screening (Z12.11) Active confirmed Problem 874876175 Encounter for screening for malignant neoplasm of colon (Z12.11) Active confirmed Problem 134861943846282 Preprocedural examination (Z01.818) Active confirmed Problem Diverticulosis of colon (785550919) Diverticulosis of colon (K57.30) Active confirmed Problem Abnormal feces (548075754) Positive colorectal cancer screening using Cologuard test (R19.5) Active confirmed Plan Of Treatment Future Test Test Name Order Date COLONOSCOPY 08/15/2020 COLONOSCOPY 01/01/2022 Insurance Providers Payer Name Payer Address Payer Phone Subscriber Number Group Number Insured Name Patient Relationship to Insured Coverage Start Date Coverage End Date [facility] [address] [address] [place] [address] [id number] DIANA MCNAIR Self - patient is the insured [employer] [address] [place] [address] [id number] DIANA MCNAIR Self - patient is the insured Medical (General) History Medical History History ICD Code Hypertension Denies [place],DM,CVA,Lung disease,renal dise ase Negative colonoscopy in 09/17 10, and negative limited exam in 2005 at [facility] Negative Cologuard in 2019 + Cologuard in 11/2021 Surgical History Surgery Date(Month/Year) Tubal ligation
[2024-11-12 21:18] VITALS: PULSE 75; O2SAT 93
--- NOTE | 2024-11-12 21:19 | PC.NURSE ---
Pt states she was dx'd w/ covid via home test 3 days ago. She says she did the home test because she was feeling under the weather for approx 2 days. PCP called in script for Paxlovid but pt was only able to take two doses d/t n/v/d. Her last episode of diarrhea was yesterday. Today she states she was here this am after being stung by a bee and self administered epi. She was monitored for a few hours and discharged home. Pt then reports by noontime she began to not feel well w/ chest tightness that worsened w/ ambulation, fever of 102, and O2 sats she states she couldnt get above 91%. Pt states she is currently living at home by herself since her had a stroke 8 months ago and lives in a snf
[2024-11-12 22:33] LABS: D Dimer High Sensitivity 306 NG/ML
[2024-11-12 22:35] LABS: Troponin-I High Sensitivity 7.0 ng/L (<3.5-17.0)
[2024-11-12] MEDS: Albuterol/Iprat 2.5/0.5MG 3 ML AMPUL.NEB INHALE (22:35)
[2024-11-12 22:39] VITALS: PULSE 67; RESP 18; O2SAT 92
--- NOTE | 2024-11-12 23:38 | MHC.EDTECH ---
Assisted patient with ambulation trial. O2 at 91. RN aware
[2024-11-12] MEDS: Albuterol Sulfate 90 MCG 8 GM INHALER 2 PUFF INHALE (23:58)
[2024-11-13 00:19] VITALS: BP 122/62; PULSE 79; RESP 18; TEMP 36.6; O2SAT 94
== END 2024-11-13 00:21 | disposition home or self-care (01) ==
PROVIDERS: Nurse Practitioner Family; Emergency Provider Emergency Medicine; PCP Internal Medicine
DX: U07.1 COVID-19 (principal); J06.9 Acute upper respiratory infection, unspecified; I10 Essential (primary) hypertension; Z79.899 Other long term (current) drug therapy
CPT/HCPCS: 36415; 71046; 80048; 84484; 85025; 85379; 93005; 94640; 99284; 99285

== ENCOUNTER → 2024-11-12 19:55 | Outpatient (BNV) | payer MEDICARE, OTHER, SELFPAY | PROVIDERS: PCP Internal Medicine; Visit Provider Radiology Diagnostic Radiology | DX: R05.9 Cough, unspecified (principal); U07.1 COVID-19 | CPT/HCPCS: 71046 ==

== ENCOUNTER → 2024-11-12 21:24 | Outpatient (BNV) | payer MEDICARE, OTHER, SELFPAY | PROVIDERS: Emergency Provider Emergency Medicine; PCP Internal Medicine; Visit Provider Internal Medicine Cardiovascular Disease | DX: Z13.6 Encounter for screening for cardiovascular disorders (principal) | CPT/HCPCS: 93010 ==

== ENCOUNTER 2024-11-15 11:01 | Outpatient (REF) | payer MEDICARE, OTHER, SELFPAY ==
--- OUTSIDE RECORDS SUMMARY | 2024-05-08 10:21 | XMS_ITS | Encounter Summary ---
Author Organization [facility] Address [address] [place] [address] [place] [address] Phone Care Team Providers Care Plumber'S Assistant Name Role Phone Carine Shelton MD Primary Care Provider [phone] Encounter Details Date Type Department Care Team (Late st Contact Info) Description 05/08/2024 9:21 AM EST Hospital Encounter [facility] [address] [place] [phone] Kamar Moser PA-C [address] [place] [address] [phone] [email or web address] Social [...] clinician's provided indication for this examination in [facility]: Cough; cough, prior smoking 10 pk [...] clinician's provided indication for this examination in [facility]:Cough; cough, prior smoking 10 pk yrs [...] documented as of this encounter Care Teams Plumber'S Assistant Relationship Specialty Start Date End Date Carine Shelton MD [address] [place] [address] PCP - General 02/24/24 documented as of this encounter Additional Source Comments The information contained in this document represents components of the legal health record. It is not the complete legal health record.[facility]
--- NOTE | ~2024-11-15 | XR_ITS ---
EXAMINATION: XR SACRUM COCCYX 2 OR MORE VIEWS HISTORY: M54.50 - Low back pain, unspecified COMPARISON: There are no prior studies available for comparison. FINDINGS: Three views of the sacrum and coccyx are submitted. Osseous mineralization is normal. No fracture or lytic lesion is identified. XR/XR sacrum coccyx min 2V IMPRESSION: No evidence of fracture of the sacrum or coccyx. Electronically signed by: Saleem Franco MD 11/15/2024 11:38 AM EDT
--- NOTE | ~2024-11-15 | XR_ITS ---
EXAMINATION: XR RIBS 3 VIEWS MINIMUM WITH CHEST RIGHT HISTORY: M54.9 - Dorsalgia, unspecified COMPARISON: Correlation is made with the prior examination of the chest dated 11/12/2024. FINDINGS: A single PA view of the chest and 3 views of the right ribs are submitted. The lungs remain hyperinflated, consistent with COPD. The lungs are clear. There is no pleural effusion, pneumothorax, or pulmonary vascular congestion. The heart is normal in size. The right ribs are intact. No fracture is seen. XR/XR ribs RT min 3V w CXR1V IMPRESSION: No acute cardiopulmonary abnormality. No evidence of fracture of the right ribs. Electronically signed by: Saleem Franco MD 11/15/2024 11:37 AM EDT
--- OUTSIDE RECORDS SUMMARY | 2024-11-15 12:14 | XMS_ITS | Patient Health Record ---
Author Organization [facility] Address [address] [place] [address] Care Team Providers Care Legal Writing Professor Name Role Phone Carine Shelton MD Primary Care Provider Saleem Johansen [phone] Allergies Allergen (clinical drug ingredient) Drug/Non Drug [...] Status Risk Notes Problem Colon cancer screening (086178996) Colon cancer screening (Z12.11) Active confirmed Problem 380953393 Encounter for screening for malignant neoplasm of colon (Z12.11) Active confirmed Problem 635561506266590 Preprocedural examination (Z01.818) Active confirmed Problem Diverticulosis of colon (251848613) Diverticulosis of colon (K57.30) Active confirmed Problem Abnormal feces (268390482) Positive colorectal cancer screening using Cologuard test (R19.5) Active confirmed Plan Of Treatment Future Test Test Name Order Date COLONOSCOPY 08/15/2020 COLONOSCOPY 01/01/2022 Insurance Providers Payer Name Payer Address Payer Phone Subscriber Number Group Number Insured Name Patient Relationship to Insured Coverage Start Date Coverage End Date [facility] [address] [address] [place] [address] [id number] DIANA MCNAIR Self - patient is the insured [employer] [address] [place] [address] [id number] DIANA MCNAIR Self - patient is the insured Medical (General) History Medical History History ICD Code Hypertension Denies [place],DM,CVA,Lung disease,renal dise ase Negative colonoscopy in 09/17 10, and negative limited exam in 2005 at [facility] Negative Cologuard in 2019 + Cologuard in 11/2021 Surgical History Surgery Date(Month/Year) Tubal ligation
--- OUTSIDE RECORDS SUMMARY | 2024-11-15 12:14 | XMS_ITS | Clinical Summary ---
Author Organization [facility] Address [address] [place] [address] Care Team Providers Care Horticultural Services Supervisor Name Role Phone Unavailable Primary Care Provider [...]
== END 2024-11-15 11:02 | disposition home or self-care (01) ==
LOC: HO.XRAY 11:01
PROVIDERS: PCP Internal Medicine; Visit Provider Internal Medicine
DX: M54.50 Low back pain, unspecified (principal); M54.9 Dorsalgia, unspecified
CPT/HCPCS: 71101; 72220

== ENCOUNTER → 2024-11-15 11:06 | Outpatient (BNV) | payer MEDICARE, OTHER, SELFPAY | PROVIDERS: PCP Internal Medicine; Visit Provider Radiology Diagnostic Radiology | DX: M54.9 Dorsalgia, unspecified (principal); M54.50 Low back pain, unspecified | CPT/HCPCS: 71101; 72220 ==

== ENCOUNTER 2024-12-02 13:43 | Outpatient (REF) | payer MEDICARE, OTHER, SELFPAY ==
--- OUTSIDE RECORDS SUMMARY | 2024-05-08 10:21 | XMS_ITS | Encounter Summary ---
Author Organization [facility] Address [address] [place] [address] [place] [address] Phone Care Team Providers Care Grain Spouter Name Role Phone Carine Shelton MD Primary Care Provider [phone] Encounter Details Date Type Department Care Team (Late st Contact Info) Description 05/08/2024 9:21 AM EST Hospital Encounter [facility] [address] [place] [address] Kamar Moser PA-C [address] [place] [address] [phone] [email or web address] Social History Tobacco Use Types Packs/Day Years Used Date Smoking Tobacco: Former Cigarettes Smokeless Tobacco: Never Education Answer Date Recorded Are you interested in more education? Not on juwan e 02/25/2024 Are you concerned about learning? Not on file 02/25/2024 No 02/25/2024 No 02/25/2024 Digital Access Answer Date Recorded No 02/25/2024 No 02/25/2024 Reliable internet access at home? Not on file 02/25/2024 Device with a working camera? Not on file Comments Unknown Sex and Gender Information Value Date Recorded Sex Assigned at Not on file Legal Sex Female 4:23 PM EST Gender Identity Not on file Sexual Orientation Not on file documented as of this encounter Plan of Treatment Not on file documented as of this encounter Procedures Procedure Name Priority Date/Time Associated Diagnosis Comments XR CHEST PA AND LATERAL 2 VIEWS Urgent/patient waiting 05/08/2024 9:29 AM EST Acute bronchitis, unspecified organism documented in this encounter Results * XR CHEST PA AND LATERAL 2 VIEWS (05/08/2024 9:29 AM EST) Anatomical Region Laterality Modality Chest Computed Radiogr aphy 05/08/2024 10:2 0 AM EST Impressions 05/08/2024 10:21 AM EST No acute abnormality. Narrative 05/08/2024 10:21 AM EST XR CHEST PA AND LATERAL 2 VIEWS Referring clinician's provided indication for this examination in [facility]: Cough; cough, prior smoking 10 pk yrs qhit 6 yrs ago COMPARISON: None FINDINGS: Devices/Tubes/Lines: None. Lungs: The lungs are clear. No focal consolidation or pulmonary edema. Pleura: No pleural effusion or pneumothorax. Heart/Mediastinum: Normal heart and mediastinum. Bones/Soft Tissues: No significant skeletal abnormality. Procedure Note Aniceto Desouza MD, MPH - 05/08/2024 XR CHEST PA AND LATERAL 2 VIEWS Referring clinician's provided indication for this examination in [facility]:Cough; cough, prior smoking 10 pk yrs qhit 6 yrs ago COMPARISON: None FINDINGS: Devices/Tubes/Lines: None. Lungs: The lungs are clear. No focal consolidation or pulmonary edema. Pleura: No pleural effusion or pneumothorax. Heart/Mediastinum: Normal heart and mediastinum. Bones/Soft Tissues: No significant skeletal abnormality. IMPRESSION: No acute abnormality. Kamar Moser PA-C IMG XR CHEST Final Re sult documented in this encounter Visit Diagnoses Not on filedocumented in this encounter Additional Health Concerns Infection Onset Date Last Indicated Resolved Time CoV-Risk 05/08/2024 05/08/2024 05/19/2024 1:21 AM EST documented as of this encounter Care Teams Grain Spouter Relationship Specialty Start Date End Date Carine Shelton MD [address] [place] [address] PCP - General 02/24/24 documented as of this encounter Additional Source Comments The information contained in this document represents components of the legal health record. It is not the complete legal health record.[facility]
--- NOTE | ~2024-12-02 | MM_ITS ---
EXAMINATION: MM SCREENING DIGITAL BREAST TOMOSYNTHESIS, BILATERAL CLINICAL INFORMATION: Screening. Asymptomatic. COMPARISON: Mammography: Comparison is made with available priors TECHNIQUE: Digital breast mammography with tomosynthesis is performed in both the craniocaudal and mediolateral oblique views along with computer-aided detection (CAD). FINDINGS: There are scattered areas of fibroglandular density (ACR BI-RADS breast composition Category b). There are no significant masses, abnormal calcifications, or other abnormalities. MM/MM tomosynthesis screening BI IMPRESSION: No mammographic evidence of malignancy. ASSESSMENT: BI-RADS BI-RADS 1 - Negative RECOMMENDATION: Routine annual mammography screening. 1 year F/U This examination should not preclude the clinical evaluation of a suspicious palpable abnormality. This patient's information was entered into a reminder system with a target due date for their next mammogram. Electronically signed by: Mildred Vallecillo DO 12/06/2024 10:53 AM EDT
--- NOTE | ~2024-12-02 | MM_ITS ---
EXAMINATION: DXA BONE DENSITY AXIAL HISTORY: M81.0 - Age-related osteoporosis without current pathological fracture TECHNIQUE: [employer] Dual energy absorptiometry (DEXA) of the lumbar spine, total left hip, and femoral neck was performed. COMPARISON: Comparison is made with the prior examination dated 10/15/2022. FINDINGS: The bone mineral density of the lumbar spine is 1.000 g/cm2, corresponding to a T-score of -1.5, and a Z-score of 0.9. This is indicative of osteopenia. This represents a BMD change of -2.6% compared to the prior exam. This is statistically significant. The bone mineral density of the left total hip is 0.819 g/cm2, corresponding to a T-score of -1.5, and a Z-score of 0.8. This is indicative of osteopenia. This represents a BMD change of -3.8% compared to the prior exam. This is not statistically significant. The bone mineral density of the left femoral neck is 0.713 g/cm2, corresponding to a T-score of -2.3, and a Z-score of 0.1. This is indicative of osteopenia. This represents a BMD change of -2.9% compared to the prior exam. FRACTURE RISK: The FRAX index suggests a ten year probability of major osteoporotic fracture of 19.5%, and of hip fracture 6.2%. MM/XR DEXA axial skeleton IMPRESSION: Based on bone mineral density, and according to World Health Organization (WHO) criteria, the diagnosis is consistent with osteopenia. Statistically, 68% of repeat scans fall within 1 SD (+/- 0.010 g/cm2 for AP spine L1-L4) and 1 SD (+/- 0.012 g/cm2 for femur total) FRAX is a trademark of the [employer], a World Health Organization (WHO) Collaborating Center. Electronically signed by: Saleem Franco MD 12/03/2024 07:01 AM EDT
--- OUTSIDE RECORDS SUMMARY | 2024-12-02 15:00 | XMS_ITS | Clinical Summary ---
Author Organization [facility] Address [address] [place] [address] Phone Care Team Providers Care Test Puller Name Role Phone Carine Shelton MD Primary Care Provider [phone] Allergies Active Allergy Reactions Criticality Noted Date Comments Venom-Honey Bee Anaphylaxis High 02/24/2024 Medications lisinopril (PRINIVIL,ZESTR IL) 20 MG tablet Take 20 mg by mouth daily. Active escitalopram oxalate (LEXAPRO) 5 MG tablet Take 1 tablet by mouth every morning. 02/10/2024 Active cholecalciferol , vitamin D3, (VITAMIN D3) 10 mcg (400 unit) capsule Vitamin D Active Active Problems No known active problems Social History Tobacco Use Types Packs/Day Years Used Date Smoking Tobacco: Former Cigarettes Smokeless Tobacco: Never Tobacco Cessation:Counseling Given: Not Answered Education Answer Date Recorded Are you interested [...] on file Sexual Orientation Not on file Last Filed Vital Signs Vital Sign Reading Time Taken Comments Blood Pressure 136/74 05/08/2024 9:09 AM EST Pulse 67 05/08/2024 9:09 AM EST Temperature 37.6 C (99.6 F) 05/08/2024 9:09 AM EST Respiratory Rate 18 05/08/2024 9:09 AM EST Oxygen Saturation 98% 05/08/2024 9:09 AM EST Inhaled Oxygen Concentration - - Weight - - Height - - Body Mass Index - - Plan of Treatment Health Maintenance Due Date Last Done Comments CREATININE LEVEL 1947 LIPID PANEL 1947 POTASSIUM LEVEL 1947 DEPRESSION SCREENING 1959 SMOKING Hx and SMOKELESS TOBACCO SCREENING 09/23/1960 HEPATITIS C SCREENING 09/23/1965 OSTEOPOROSIS SCREENING INITIAL (ONE-TIME) 09/23/2012 COVID-19 VACCINE ( season) 2024 12/19/2023, 01/02/2023, 08/01/2022, Additional history exists Adult Td,Tdap Booster 08/02/2031 08/01/2021 PNEUMOCOCCAL VACCINES (50+ years) Completed 01/06/2019, 05/20/2016, 01/10/2014 ZOSTER VACCINES Completed 02/17/2019, 12/01/2018 RSV VACCINE Completed 12/15/2022 HEPATITIS A VACCINES Aged Out No long er eligible based on patient's age to complete this topic HIB VACCINES Aged Out No longer eligi ble based on patient's age to complete this topic MENINGOCOCCAL VACCINES (ACWY) Aged Out No longer eligible based on patient's age to complete this topic MENINGOCOCCAL VACCINES (B) Aged Out N o longer eligible based on patient's age to complete this topic Medical Devices Not on file Insurance [facility] MEDICARE REPLACEMENT [place] [id number] [employer] [facility] MEDICARE SUPPLEMENT Member Subscriber Plan / Payer (Ef fective 2023-Present) Name:Delma Hebert Relation to Subscriber:Self Name:Delma Hebert Payer ID:[id number] (NAIC) Group ID:Not on file Type:[facility] Address: [place] [id number] [facility] MEDICARE REPLACEMENT [employer] MEDICARE SUPPLEMENT [facility] MEDICARE REPLACEMENT FOR LIFE MEDICARE SUPPLEMENT [facility] MEDICARE REPLACEMENT Source Audio LIFE MEDICARE SUPPLEMENT [facility] MEDICARE REPLACEMENT FOR LIFE MEDICARE SUPPLEMENT [facility] MEDICARE REPLACEMENT FOR LIFE MEDICARE SUPPLEMENT Care Teams Test Puller Relationship Specialty Start Date End Date Carine Shelton MD [address] [place] [id number] PCP - General 02/24/24 Additional Source Comments The information contained in this document represents components of the legal health record. It is not the complete legal health record.[facility]
--- OUTSIDE RECORDS SUMMARY | 2024-12-02 15:00 | XMS_ITS | Patient Health Record ---
Author Organization [facility] Address [address] [place] [address] Care Team Providers Care Order Management Specialist Name Role Phone Carine Shelton MD Primary Care Provider Saleem Johansen [phone] Allergies Allergen (clinical drug ingredient) Drug/Non Drug [...] Status Risk Notes Problem Colon cancer screening (979771649) Colon cancer screening (Z12.11) Active confirmed Problem 696548076 Encounter for screening for malignant neoplasm of colon (Z12.11) Active confirmed Problem 695897202810777 Preprocedural examination (Z01.818) Active confirmed Problem Diverticulosis of colon (123325234) Diverticulosis of colon (K57.30) Active confirmed Problem Abnormal feces (418028398) Positive colorectal cancer screening using Cologuard test (R19.5) Active confirmed Plan Of Treatment Future Test Test Name Order Date COLONOSCOPY 08/15/2020 COLONOSCOPY 01/01/2022 Insurance Providers Payer Name Payer Address Payer Phone Subscriber Number Group Number Insured Name Patient Relationship to Insured Coverage Start Date Coverage End Date [facility] [address] [address] [place] [address] [id number] DIANA MCNAIR Self - patient is the insured [employer] [address] [place] [address] [id number] DIANA MCNAIR Self - patient is the insured Medical (General) History Medical History History ICD Code Hypertension Denies [place],DM,CVA,Lung disease,renal dise ase Negative colonoscopy in 09/17 10, and negative limited exam in 2005 at [facility] Negative Cologuard in 2019 + Cologuard in 11/2021 Surgical History Surgery Date(Month/Year) Tubal ligation
--- OUTSIDE RECORDS SUMMARY | 2024-12-02 15:00 | XMS_ITS | Clinical Summary ---
Author Organization [facility] Address [address] [place] [address] Care Team Providers Care Banana Handler Name Role Phone Unavailable Primary Care Provider [...]
== END 2024-12-02 13:44 | disposition home or self-care (01) ==
LOC: HO.MAMMO 13:43
PROVIDERS: PCP Internal Medicine; Visit Provider Internal Medicine
DX: Z12.31 Encounter for screening mammogram for malignant neoplasm of breast (principal); M81.0 Age-related osteoporosis without current pathological fracture; M85.89 Other specified disorders of bone density and structure, multiple sites
CPT/HCPCS: 77063; 77067; 77080

== ENCOUNTER → 2024-12-02 14:30 | Outpatient (BNV) | payer MEDICARE, OTHER, SELFPAY | PROVIDERS: PCP Internal Medicine; Visit Provider Radiology Diagnostic Radiology | DX: Z12.31 Encounter for screening mammogram for malignant neoplasm of breast (principal) | CPT/HCPCS: 77063; 77067 ==